=== PATIENT | female | born 1950 | race Hispanic/Latino ===

== ENCOUNTER 2017-03-14 13:02 | Emergency (ER) | payer MEDICARE ==
[~2017-03-14 13:02] MED LIST: ACET-2123 PO; ASPI-1181 PO; ATOR40TA71 PO; CALC-724 PO; MONT10TA21 PO; OMEP20CA10 PO; PRED20TA3 PO; TRAM50TA4 PO
[2017-03-14] MEDS ORDERED: IBUPROFEN 400 MG TABLET ONE (14:25)
== END 2017-03-14 15:41 | disposition home or self-care (01) ==
LOC: EDH 13:02
DX: S82.145A Nondisplaced bicondylar fracture of left tibia, initial encounter for closed fracture (principal); M25.552 Pain in left hip; M25.562 Pain in left knee; M79.652 Pain in left thigh; I10 Essential (primary) hypertension; E11.9 Type 2 diabetes mellitus without complications; J44.9 Chronic obstructive pulmonary disease, unspecified; W18.39XA Other fall on same level, initial encounter; Y93.89 Activity, other specified; Y92.89 Other specified places as the place of occurrence of the external cause; Y99.8 Other external cause status
CPT/HCPCS: 29505; 73502; 73552; 73562

== ENCOUNTER 2021-01-21 11:55 | Emergency (ER) | payer MEDICARE ==
[~2021-01-21] VITALS: Ht 157.5 cm; Wt 70.3 kg
[~2021-01-21 11:55] MED LIST changes: -ASPI-1181 PO; +ASPI-1443 PO; +CALC-1158 PO; -CALC-724 PO; -OMEP20CA10 PO; +OMEP20CA12 PO
[2021-01-21 12:25] LABS: BASOPHILS % (AUTO) 0.5 % (0.0-5.0); EOSINOPHILS % (AUTO) 0.9 % (0.0-8.0); HEMATOCRIT 37.5 % (36-48); LYMPHOCYTES % (AUTO) 24.6 % (21.0-51.0); MEAN CORPUSCULAR HEMOGLOBIN 29.7 pg (27.0-33.0); MEAN CORPUSCULAR HGB CONC 32.3 g/dL (32.0-36.0); MEAN CORPUSCULAR VOLUME 91.9 fL (79-99); MONOCYTES % (AUTO) 8.8 % (3.0-13.0); NEUTROPHILS % (AUTO) 64.9 % (40.0-77.0); PLATELET COUNT (AUTO) 295 K/uL (130-400); RED BLOOD CELL COUNT(AUTO) 4.08 MIL/uL (4.00-5.50); RED CELL DISTRIBUTION WIDTH 13.7 % (11.0-15.5); WHITE BLOOD COUNT (AUTO) 7.9 K/uL (4.8-10.8)
[2021-01-21] MEDS ORDERED: LORAZEPAM 2 MG/ML 1 ML VIAL IVP SCH (12:30)
[2021-01-21 12:38] LABS: CARBON DIOXIDE 26 mmol/L (21-32); CHLORIDE 102 mmol/L (101-111); GLOMERULAR FILTR. RATE CALC 58 mL/min (>60); GLUCOSE,RANDOM 135 mg/dL (70-105); POTASSIUM 4.1 mmol/L (3.5-5.1); SODIUM SERUM 138 mmol/L (136-145); UREA NITROGEN, BLOOD 19 mg/dL (7-18)
[2021-01-21 12:46] LABS: ALANINE AMINOTRANSFERASE 23 U/L (12-78); ALBUMIN 4.1 g/dL (3.5-5.0); ASPARTATE AMINOTRANSFERASE 22 U/L (10-37); BILIRUBIN,TOTAL 0.5 mg/dL (0.2-1.0)
[2021-01-21 12:50] LABS: APPEARANCE,URINE Clear (CLEAR); BILIRUBIN,URINE Negative (NEGATIVE); COLOR,URINE Yellow (YELLOW); GLUCOSE, URINE (UA) Negative (NEGATIVE); KETONES,URINE Negative (NEGATIVE); LEUKOCYTE ESTERASE ,URINE Negative (NEGATIVE); NITRATE,URINE Negative (NEGATIVE); OCCULT BLOOD,URINE Trace (NEGATIVE); PH,URINE 7.5 (5.0-8.0); PROTEIN,URINE Trace mg/dL (NEGATIVE)
[2021-01-21 12:59] LABS: BACTERIA,URINE Few /HPF (None Seen); RBC,URINE 0-1 /HPF (0-1); WBC,URINE 0-1 /HPF (0-1)
[2021-01-21 13:12] LABS: CRP QUANTITATIVE < 2.00 mg/L (0.00-9.0)
[2021-01-21] MEDS ORDERED: HYDR-3421 PO (13:23)
[2021-01-21 13:49] VITALS: BP 128/72
== END 2021-01-21 13:54 | disposition home or self-care (01) ==
LOC: EDH 11:55
DX: R00.2 Palpitations (principal); F41.9 Anxiety disorder, unspecified; I10 Essential (primary) hypertension; E11.9 Type 2 diabetes mellitus without complications; E78.00 Pure hypercholesterolemia, unspecified; J45.909 Unspecified asthma, uncomplicated; Z72.0 Tobacco use; Z79.52 Long term (current) use of systemic steroids; Z79.82 Long term (current) use of aspirin; Z79.84 Long term (current) use of oral hypoglycemic drugs; Z79.899 Other long term (current) drug therapy
CPT/HCPCS: 36415; 71045; 80053; 81001; 84484; 85025; 86140; 93005; 96374; 99285; J2060

== ENCOUNTER 2022-09-25 09:41 | Inpatient (IN) | payer OTHER, MEDICARE ==
[~2022-09-25] VITALS: Ht 157.5 cm; Wt 70.0 kg
[~2022-09-25 09:41] MED LIST changes: +AMLO5TAB4 PO; +BUDE10.22 IH; +HYDR-3421 PO; +HYDR25TA PO; +MONT-46 PO; +MONT-47 PO; -MONT10TA21 PO; +PRED20B PO; -PRED20TA3 PO
[2022-09-25 10:08] LABS: HEMATOCRIT 28.8 % (36-48); MEAN CORPUSCULAR HEMOGLOBIN 30.4 pg (27.0-33.0); MEAN CORPUSCULAR HGB CONC 35.1 g/dL (32.0-36.0); MEAN CORPUSCULAR VOLUME 86.7 fL (79-99); RED BLOOD CELL COUNT(AUTO) 3.32 MIL/uL (4.00-5.50); RED CELL DISTRIBUTION WIDTH 12.8 % (11.0-15.5); WHITE BLOOD COUNT (AUTO) 9.9 K/uL (4.8-10.8)
[2022-09-25] MEDS ORDERED: TRAM50TA4 PO (10:15)
[2022-09-25 10:21] LABS: ALBUMIN 3.8 g/dL (3.5-5.0); BILIRUBIN,TOTAL 0.8 mg/dL (0.2-1.0); TOTAL PROTEIN, SERUM 7.2 g/dL (6.0-8.3)
[2022-09-25 10:22] LABS: POTASSIUM 2.9 mmol/L (3.5-5.1)
[2022-09-25] MEDS ORDERED: POTASSIUM CHLORIDE 10% ELIXIR 20 MEQ/15 ML UDCUP PO ONE (11:00)
[2022-09-25] MEDS ORDERED: 0.9%NACL 1000ML 1,000 ML IV ONE (11:00)
[2022-09-25] MEDS ORDERED: CEFTRIAXONE 1G VIAL 2 GM in 0.9%NACL 100ML 100 ML IV SCH (12:00)
[2022-09-25] MEDS ORDERED: 0.9%NACL 1000ML 1,000 ML IV SCH ×2 (12:00→15:00)
[2022-09-25] MEDS ORDERED: ACETAMINOPHEN 325 MG TAB PO PRN ×2 (12:00)
[2022-09-25] MEDS ORDERED: ONDANSETRON 4MG INJ IV PRN (12:00)
[2022-09-25 13:32] LABS: CREATININE 3.2 mg/dL (0.5-1.5)
[2022-09-25] MEDS: CEFTRIAXONE 2GM VIAL IVPB SCH (13:59)
[2022-09-25] MEDS: AZITHROMYCIN 500MG+NS 250ML IVPB SCH (13:59)
[2022-09-25] MEDS ORDERED: POTASSIUM CHLORIDE 10% ELIXIR 20 MEQ/15 ML UDCUP PO PRN (14:00)
[2022-09-25] MEDS ORDERED: POTASSIUM CHLORIDE 10MEQ/100ML 100 ML IV PRN (14:00)
[2022-09-25 14:12] LABS: MAGNESIUM 1.8 mg/dL (1.80-2.40); URIC ACID 8.3 mg/dL (2.6-7.2)
[2022-09-25] MEDS: POTASSIUM CHLORIDE 10MEQ/100ML 100 ML IV PRN (14:26)
[2022-09-25 15:50] LABS: HEMOGLOBIN A1C 7.1 % (4.0-6.0)
[2022-09-25 15:51] LABS: BILIRUBIN,URINE NEGATIVE (NEGATIVE); COLOR,URINE YELLOW (YELLOW); GLUCOSE, URINE (UA) NEGATIVE (NEGATIVE); KETONES,URINE NEGATIVE (NEGATIVE); LEUKOCYTE ESTERASE ,URINE 25 Leu/uL (NEGATIVE); NITRATE,URINE NEGATIVE (NEGATIVE); OCCULT BLOOD,URINE NEGATIVE (NEGATIVE); PROTEIN,URINE 20 mg/dL (NEGATIVE); UROBILINOGEN,URINE 0.2 mg/dL (0.2-1.0)
[2022-09-25 15:52] LABS: CREATININE,URINE RANDOM 335 mg/dL (30-135)
[2022-09-25 15:53] LABS: ADD UA MICROSCOPIC YES; APPEARANCE,URINE CLOUDY (CLEAR)
[2022-09-25 15:55] LABS: BACTERIA,URINE MOD /HPF (None Seen); MUCUS,URINE RARE LPF (None Seen); NON-SQUAMOUS EPITHELIAL CELL 1 /HPF (0-2); SQUAMOUS EPITHELIAL CELL,UR MOD /HPF (0-2); UNCLASSIFIED CRYSTAL 6 /HPF (None Seen); WBC CLUMP FEW /HPF (0-1)
[2022-09-25 15:58] LABS: RETICULOCYTE % (AUTO) 1.78 % (0.42-2.23)
[2022-09-25 16:41] LABS: % IRON SATURATION 16.5 % (22-44)
[2022-09-25 16:53] LABS: POTASSIUM 3.9 mmol/L (3.5-5.1)
[2022-09-25] MEDS ORDERED: AMLO-257 PO (17:53)
[2022-09-25] MEDS ORDERED: FISH1CAP27 PO (17:53)
[2022-09-25] MEDS ORDERED: FENO134C21 PO (17:53)
[2022-09-25] MEDS ORDERED: LOVA10TA2 PO (17:53)
[2022-09-25] MEDS ORDERED: ALBU90AE2 IH (17:53)
[2022-09-25] MEDS ORDERED: LORA10TA7 PO (17:53)
[2022-09-25] MEDS ORDERED: LOSA25TA41 PO (17:53)
[2022-09-25] MEDS ORDERED: NOREPINEPHRIN 4MG/NS 250ML 250 ML IV ONE (18:23)
[2022-09-25 18:30] LABS: SARS-CoV-2, RNA, NAAT NEGATIVE SARS CoV-2 (NEGATIVE)
[2022-09-25 18:34] LABS: INFLUENZA TYPE A Negative For Type A (NEGATIVE); INFLUENZA TYPE B Negative For Type B (NEGATIVE)
[2022-09-25] MEDS: NOREPINEPHRIN 4MG/NS 250ML 250 ML IV SCH (18:34)
[2022-09-25] MEDS ORDERED: FUROSEMIDE 40MG VIAL IV STA (19:29)
[2022-09-25] MEDS ORDERED: FUROSEMIDE 20MG VIAL ONE (19:32)
[2022-09-26] VITALS (84 sets, daily range): BP systolic 82–133; BP diastolic 35–86; PULSE 88–127; RESP 11–31; O2SAT 97–100
[2022-09-26 01:55] LABS: ABG BASE EXCESS -8.1 mmol/L (-2.0-3.0); ABG HCO3 16.1 mmol/L (21.0-28.0); ABG OXYGEN SATURATION 97.3 % (95.0-99.0); ABG PCO2 30 mmHg (32-45); ABG PH 7.346 (7.35-7.450); PO2, ARTERIAL BG 98.8 mmHg (83.0-108.0); VENT MODE, BG NC 3LPM LR (ROOM AIR)
[2022-09-26] MEDS ORDERED: SODIUM BICARB 50MEQ 50ML VIAL 200 ML ONE (02:04)
[2022-09-26] MEDS ORDERED: SODIUM BICARB 50MEQ 50ML VIAL IV ONE (02:08)
[2022-09-26 03:28] LABS: ABG BASE EXCESS -2.5 mmol/L (-2.0-3.0); ABG HCO3 21.2 mmol/L (21.0-28.0); ABG OXYGEN SATURATION 97.5 % (95.0-99.0); ABG PCO2 34 mmHg (32-45); ABG PH 7.417 (7.35-7.450); PO2, ARTERIAL BG 95.6 mmHg (83.0-108.0); VENT MODE, BG NC 3LPM LR (ROOM AIR)
[2022-09-26 07:00] LABS: ALBUMIN 3.1 g/dL (3.5-5.0); BILIRUBIN,TOTAL 0.5 mg/dL (0.2-1.0); CREATININE 2.7 mg/dL (0.5-1.5); MAGNESIUM 1.8 mg/dL (1.80-2.40); TOTAL PROTEIN, SERUM 6.2 g/dL (6.0-8.3)
[2022-09-26] MEDS: NOREPINEPHRIN 4MG/NS 250ML 250 ML IV SCH ×2 (07:11→22:00)
[2022-09-26 07:21] LABS: BASOPHILS # (AUTO) 0.02 K/uL (0.00-0.20); BASOPHILS % (AUTO) 0.2 % (0.0-5.0); EOSINOPHILS # (AUTO) 0.14 K/uL (0.00-0.70); EOSINOPHILS % (AUTO) 1.6 % (0.0-8.0); HEMATOCRIT 26.4 % (36-48); IMMATURE GRANULOCYTE ABSOLUTE 0.06 K/uL (0-1); LYMPHOCYTES # (AUTO) 1.8 K/uL (1.0-4.8); LYMPHOCYTES % (AUTO) 21.1 % (21.0-51.0); MEAN CORPUSCULAR HEMOGLOBIN 30.6 pg (27.0-33.0); MEAN CORPUSCULAR HGB CONC 35.2 g/dL (32.0-36.0); MEAN CORPUSCULAR VOLUME 86.8 fL (79-99); MONOCYTES % (AUTO) 11.8 % (3.0-13.0); NEUTROPHILS # (AUTO) 5.6 K/uL (1.8-7.7); NEUTROPHILS % (AUTO) 64.6 % (40.0-77.0); PLATELET COUNT (AUTO) 293 K/uL (130-400); RED BLOOD CELL COUNT(AUTO) 3.04 MIL/uL (4.00-5.50); RED CELL DISTRIBUTION WIDTH 12.7 % (11.0-15.5); WHITE BLOOD COUNT (AUTO) 8.6 K/uL (4.8-10.8)
[2022-09-26] MEDS ORDERED: LOPERAMIDE HCL 2 MG CAP PO PRN (10:30)
[2022-09-26] MEDS ORDERED: DEXTROSE 50%-WATER 50 ML DISP.SYRIN IV PRN (12:00)
[2022-09-26] MEDS ORDERED: GLUCAGON 1MG KIT 1 MG ML IM PRN (12:00)
[2022-09-26] MEDS: AZITHROMYCIN 500MG+NS 250ML IVPB SCH (12:03)
[2022-09-26 13:52] LABS: INR 0.94 (0.85-1.15); PROTHROMBIN TIME 10.9 SEC (9.6-11.6)
[2022-09-26 13:53] LABS: PARTIAL THROMBOPLASTIN TIME 31.9 SEC (26.3-35.5)
[2022-09-26] MEDS: KCL 20 MEQ ERTAB PO PRN ×3 (15:26→21:25)
[2022-09-26] MEDS ORDERED: CILO100T3 PO (15:39)
[2022-09-26] MEDS: INSULIN HUMULIN R 100 UNIT/ML 3ML SQ SCH ×2 (16:30→21:00)
[2022-09-26] MEDS: CEFTRIAXONE 2GM VIAL IVPB SCH (18:05)
[2022-09-26] MEDS: METRONIDAZOLE 500MG/100ML BAG 100 ML IVPB SCH ×2 (18:06→21:27)
[2022-09-26] MEDS ORDERED: IRON SUCROSE COMPLEX 300 MG in 0.9% NACL 250ML 250 ML IV ONE (21:00)
[2022-09-26] MEDS ORDERED: ALBUTEROL SULFATE 90 MCG IH SCH (21:00)
[2022-09-26] MEDS: SYMBICORT 80-4.5 MCG INHALER IH SCH (21:00)
[2022-09-26] MEDS: FISH OIL 1000 MG/CAP PO SCH (21:13)
[2022-09-27] VITALS (56 sets, daily range): BP systolic 89–159; BP diastolic 43–104; PULSE 85–122; RESP 14–38; O2SAT 89–100
[2022-09-27] MEDS: CYCLOBENZAPRINE HCL 10 MG TABLET PO PRN (04:30)
[2022-09-27 04:34] LABS: BASOPHILS # (AUTO) 0.02 K/uL (0.00-0.20); BASOPHILS % (AUTO) 0.2 % (0.0-5.0); EOSINOPHILS # (AUTO) 0.11 K/uL (0.00-0.70); EOSINOPHILS % (AUTO) 1.1 % (0.0-8.0); HEMATOCRIT 28.2 % (36-48); IMMATURE GRANULOCYTE ABSOLUTE 0.07 K/uL (0-1); LYMPHOCYTES # (AUTO) 2.3 K/uL (1.0-4.8); LYMPHOCYTES % (AUTO) 22.9 % (21.0-51.0); MEAN CORPUSCULAR HEMOGLOBIN 30.2 pg (27.0-33.0); MEAN CORPUSCULAR VOLUME 88.7 fL (79-99); MONOCYTES # (AUTO) 1.2 K/uL (0.1-1.0); MONOCYTES % (AUTO) 12.2 % (3.0-13.0); NEUTROPHILS # (AUTO) 6.3 K/uL (1.8-7.7); NEUTROPHILS % (AUTO) 62.9 % (40.0-77.0); PLATELET COUNT (AUTO) 302 K/uL (130-400); RED BLOOD CELL COUNT(AUTO) 3.18 MIL/uL (4.00-5.50); RED CELL DISTRIBUTION WIDTH 12.9 % (11.0-15.5)
[2022-09-27 04:48] LABS: ALBUMIN 2.9 g/dL (3.5-5.0); BILIRUBIN,TOTAL 0.2 mg/dL (0.2-1.0); CREATININE 1.5 mg/dL (0.5-1.5); MAGNESIUM 1.8 mg/dL (1.80-2.40); PHOSPHORUS 2.7 mg/dL (2.5-4.9); POTASSIUM 3.8 mmol/L (3.5-5.1); TOTAL PROTEIN, SERUM 6.2 g/dL (6.0-8.3)
[2022-09-27] MEDS: MAGNESIUM 2GM PREMIX 50ML 50 ML IV PRN (06:19)
[2022-09-27] MEDS: KCL 20 MEQ ERTAB PO PRN (06:20)
[2022-09-27] MEDS: METRONIDAZOLE 500MG/100ML BAG 100 ML IVPB SCH ×3 (06:20→21:29)
[2022-09-27] MEDS: INSULIN HUMULIN R 100 UNIT/ML 3ML SQ SCH ×4 (06:21→21:00)
[2022-09-27] MEDS ORDERED: NON-FORMULARY MEDICATION 1 EACH (Omeprazole 20 MG) PO SCH (07:30)
[2022-09-27] MEDS ORDERED: PANTOPRAZOLE 40 MG TAB DR PO SCH (07:30)
[2022-09-27] MEDS: FISH OIL 1000 MG/CAP PO SCH ×2 (08:51→21:28)
[2022-09-27] MEDS: LORATADINE 10 MG TABLET PO SCH (08:51)
[2022-09-27] MEDS: LACTOBACILLUS RHAMNOSUS GG 1 EACH CAP.SPRINK PO SCH ×3 (08:51→21:28)
[2022-09-27] MEDS: SYMBICORT 80-4.5 MCG INHALER IH SCH ×2 (09:00→20:03)
[2022-09-27] MEDS ORDERED: FENOFIBRATE MICRONIZED 134 MG PO SCH (09:00)
[2022-09-27] MEDS ORDERED: FENOFIBRATE NANOCRYSTALLIZED 48 MG TAB PO SCH (09:00)
[2022-09-27] MEDS: BUDESONIDE 0.5 MG/2 ML INH IH SCH ×3 (12:03→19:42)
[2022-09-27] MEDS: ALBUTEROL 0.083% 2.5 MG/3 ML INH IH SCH ×2 (12:04→19:24)
[2022-09-27] MEDS: CEFTRIAXONE 2GM VIAL IVPB SCH (12:56)
[2022-09-27] MEDS: AZITHROMYCIN 500MG+NS 250ML IVPB SCH (12:56)
[2022-09-27] MEDS: IPRATROPIUM/ALBUTEROL SULFATE 3 ML SOLUTION IH PRN ×2 (15:28→23:14)
[2022-09-27] MEDS ORDERED: NON-FORMULARY MEDICATION 1 EACH (Lovastatin 10 MG) PO SCH (21:00)
[2022-09-27] MEDS: FAMOTIDINE 20MG TAB PO SCH (21:27)
[2022-09-27] MEDS: ATORVASTATIN 10 MG TABLET PO SCH (21:28)
[2022-09-27] MEDS: CILOSTAZOL 100 MG TAB PO SCH (21:28)
[2022-09-28] VITALS (13 sets, daily range): BP systolic 118–128; BP diastolic 54–87; PULSE 95–125; RESP 20–25; O2SAT 87–97
[2022-09-28 06:02] LABS: BASOPHILS # (AUTO) 0.04 K/uL (0.00-0.20); BASOPHILS % (AUTO) 0.4 % (0.0-5.0); EOSINOPHILS # (AUTO) 0.02 K/uL (0.00-0.70); EOSINOPHILS % (AUTO) 0.2 % (0.0-8.0); HEMATOCRIT 29.2 % (36-48); IMMATURE GRANULOCYTE ABSOLUTE 0.13 K/uL (0-1); LYMPHOCYTES # (AUTO) 1.9 K/uL (1.0-4.8); LYMPHOCYTES % (AUTO) 18.1 % (21.0-51.0); MEAN CORPUSCULAR HEMOGLOBIN 30.4 pg (27.0-33.0); MEAN CORPUSCULAR HGB CONC 32.9 g/dL (32.0-36.0); MEAN CORPUSCULAR VOLUME 92.4 fL (79-99); MONOCYTES # (AUTO) 1.2 K/uL (0.1-1.0); MONOCYTES % (AUTO) 11.3 % (3.0-13.0); NEUTROPHILS # (AUTO) 7.2 K/uL (1.8-7.7); NEUTROPHILS % (AUTO) 68.7 % (40.0-77.0); PLATELET COUNT (AUTO) 267 K/uL (130-400); RED BLOOD CELL COUNT(AUTO) 3.16 MIL/uL (4.00-5.50); RED CELL DISTRIBUTION WIDTH 13.2 % (11.0-15.5); WHITE BLOOD COUNT (AUTO) 10.4 K/uL (4.8-10.8)
[2022-09-28] MEDS: BUDESONIDE 0.5 MG/2 ML INH IH SCH ×2 (06:36→18:21)
[2022-09-28] MEDS: ALBUTEROL 0.083% 2.5 MG/3 ML INH IH SCH ×2 (06:36→18:21)
[2022-09-28] MEDS: INSULIN HUMULIN R 100 UNIT/ML 3ML SQ SCH ×4 (06:38→21:00)
[2022-09-28 06:39] LABS: ALBUMIN 2.9 g/dL (3.5-5.0); BILIRUBIN,TOTAL 0.4 mg/dL (0.2-1.0); CREATININE 0.8 mg/dL (0.5-1.5); POTASSIUM 3.9 mmol/L (3.5-5.1); TOTAL PROTEIN, SERUM 6.6 g/dL (6.0-8.3)
[2022-09-28] MEDS: METRONIDAZOLE 500MG/100ML BAG 100 ML IVPB SCH ×3 (06:40→21:38)
[2022-09-28] MEDS: FISH OIL 1000 MG/CAP PO SCH ×2 (08:51→19:37)
[2022-09-28] MEDS: LACTOBACILLUS RHAMNOSUS GG 1 EACH CAP.SPRINK PO SCH ×3 (08:51→19:40)
[2022-09-28] MEDS: LORATADINE 10 MG TABLET PO SCH (08:51)
[2022-09-28] MEDS: FAMOTIDINE 20MG TAB PO SCH ×2 (08:51→19:37)
[2022-09-28] MEDS: CILOSTAZOL 100 MG TAB PO SCH ×2 (08:51→19:37)
[2022-09-28] MEDS: SYMBICORT 80-4.5 MCG INHALER IH SCH ×2 (08:52→19:38)
[2022-09-28] MEDS: IPRATROPIUM/ALBUTEROL SULFATE 3 ML SOLUTION IH PRN ×2 (11:26→22:53)
[2022-09-28] MEDS: AZITHROMYCIN 500MG+NS 250ML IVPB SCH (12:25)
[2022-09-28] MEDS: CEFTRIAXONE 2GM VIAL IVPB SCH (12:25)
[2022-09-28] MEDS: ATORVASTATIN 10 MG TABLET PO SCH (19:37)
[2022-09-29] VITALS (16 sets, daily range): BP systolic 115–158; BP diastolic 54–81; PULSE 110–130; RESP 19–23; O2SAT 96–98
[2022-09-29 03:36] LABS: BASOPHILS # (AUTO) 0.03 K/uL (0.00-0.20); BASOPHILS % (AUTO) 0.3 % (0.0-5.0); EOSINOPHILS # (AUTO) 0.03 K/uL (0.00-0.70); EOSINOPHILS % (AUTO) 0.3 % (0.0-8.0); HEMATOCRIT 26.7 % (36-48); IMMATURE GRANULOCYTE ABSOLUTE 0.12 K/uL (0-1); LYMPHOCYTES # (AUTO) 2.1 K/uL (1.0-4.8); MEAN CORPUSCULAR HEMOGLOBIN 30.3 pg (27.0-33.0); MEAN CORPUSCULAR VOLUME 92.1 fL (79-99); MONOCYTES # (AUTO) 1.5 K/uL (0.1-1.0); MONOCYTES % (AUTO) 12.7 % (3.0-13.0); NEUTROPHILS # (AUTO) 7.8 K/uL (1.8-7.7); NEUTROPHILS % (AUTO) 67.7 % (40.0-77.0); PLATELET COUNT (AUTO) 272 K/uL (130-400); RED CELL DISTRIBUTION WIDTH 13.4 % (11.0-15.5); WHITE BLOOD COUNT (AUTO) 11.5 K/uL (4.8-10.8)
[2022-09-29 03:43] LABS: ALBUMIN 2.6 g/dL (3.5-5.0); BILIRUBIN,TOTAL 0.4 mg/dL (0.2-1.0); CREATININE 0.8 mg/dL (0.5-1.5); POTASSIUM 3.7 mmol/L (3.5-5.1); TOTAL PROTEIN, SERUM 5.9 g/dL (6.0-8.3)
[2022-09-29] MEDS: METRONIDAZOLE 500MG/100ML BAG 100 ML IVPB SCH ×3 (05:33→22:07)
[2022-09-29] MEDS: INSULIN HUMULIN R 100 UNIT/ML 3ML SQ SCH ×4 (06:04→21:00)
[2022-09-29] MEDS: ALBUTEROL 0.083% 2.5 MG/3 ML INH IH SCH ×2 (06:37→18:18)
[2022-09-29] MEDS: BUDESONIDE 0.5 MG/2 ML INH IH SCH ×2 (06:37→18:18)
[2022-09-29] MEDS: CILOSTAZOL 100 MG TAB PO SCH ×2 (08:24→21:40)
[2022-09-29] MEDS: FISH OIL 1000 MG/CAP PO SCH ×2 (08:25→21:40)
[2022-09-29] MEDS: FAMOTIDINE 20MG TAB PO SCH ×2 (08:25→21:40)
[2022-09-29] MEDS: LACTOBACILLUS RHAMNOSUS GG 1 EACH CAP.SPRINK PO SCH ×3 (08:25→21:40)
[2022-09-29] MEDS: KCL 20 MEQ ERTAB PO PRN (08:25)
[2022-09-29] MEDS: LORATADINE 10 MG TABLET PO SCH (08:25)
[2022-09-29] MEDS ORDERED: BISACODYL 10 MG SUPP.RECT RC SCH (09:30)
[2022-09-29] MEDS: MORPHINE 2 MG SYG IVP PRN ×2 (10:31→17:00)
[2022-09-29] MEDS: IPRATROPIUM 0.5 MG/2.5 ML INH IH SCH ×4 (10:54→22:52)
[2022-09-29] MEDS ORDERED: IOHEXOL 350 MG/ML 100ML INFUS..BTL IV ONE (11:08)
[2022-09-29] MEDS: AZITHROMYCIN 500MG+NS 250ML IVPB SCH (12:59)
[2022-09-29] MEDS: CEFTRIAXONE 2GM VIAL IVPB SCH (12:59)
[2022-09-29] MEDS: ATORVASTATIN 10 MG TABLET PO SCH (21:40)
[2022-09-29] MEDS: BISACODYL 5 MG TABLET.DR PO SCH (21:40)
[2022-09-30] VITALS (16 sets, daily range): BP systolic 115–138; BP diastolic 37–72; PULSE 98–157; RESP 18–24; O2SAT 93–98
[2022-09-30] MEDS: IPRATROPIUM 0.5 MG/2.5 ML INH IH SCH ×6 (02:15→22:24)
[2022-09-30 03:35] LABS: HEMATOCRIT 28.4 % (36-48); MEAN CORPUSCULAR HEMOGLOBIN 30.4 pg (27.0-33.0); MEAN CORPUSCULAR HGB CONC 32.7 g/dL (32.0-36.0); MEAN CORPUSCULAR VOLUME 92.8 fL (79-99); PLATELET COUNT (AUTO) 300 K/uL (130-400); RED BLOOD CELL COUNT(AUTO) 3.06 MIL/uL (4.00-5.50); RED CELL DISTRIBUTION WIDTH 13.7 % (11.0-15.5); WHITE BLOOD COUNT (AUTO) 12.8 K/uL (4.8-10.8)
[2022-09-30 04:03] LABS: ALBUMIN 2.9 g/dL (3.5-5.0); BILIRUBIN,TOTAL 0.4 mg/dL (0.2-1.0); POTASSIUM 4.1 mmol/L (3.5-5.1); TOTAL PROTEIN, SERUM 6.6 g/dL (6.0-8.3)
[2022-09-30] MEDS: INSULIN HUMULIN R 100 UNIT/ML 3ML SQ SCH ×4 (06:08→20:14)
[2022-09-30] MEDS: METRONIDAZOLE 500MG/100ML BAG 100 ML IVPB SCH ×3 (06:08→21:58)
[2022-09-30 06:09] LABS: LYMPHOCYTES % (MANUAL) 18 % (22-44); MAN.DIFF COMMENT-IMPRESSION MANUAL DIFFERENTIAL; MONOCYTES % (MANUAL) 7 % (2-9); PLATELET MORPHOLOGY COMMENT ADEQUATE; SEGMENTED NEUTROPHILS % 75 % (40-70); TOTAL CELLS COUNTED 100; WBC MORPHOLOGY NORMAL
[2022-09-30] MEDS: BUDESONIDE 0.5 MG/2 ML INH IH SCH ×2 (06:30→18:00)
[2022-09-30] MEDS: LORATADINE 10 MG TABLET PO SCH (08:43)
[2022-09-30] MEDS: CILOSTAZOL 100 MG TAB PO SCH ×2 (08:43→20:40)
[2022-09-30] MEDS: LACTOBACILLUS RHAMNOSUS GG 1 EACH CAP.SPRINK PO SCH ×3 (08:43→20:39)
[2022-09-30] MEDS: FISH OIL 1000 MG/CAP PO SCH ×2 (08:43→20:39)
[2022-09-30] MEDS: FAMOTIDINE 20MG TAB PO SCH ×2 (08:43→20:39)
[2022-09-30] MEDS: BISACODYL 5 MG TABLET.DR PO SCH (08:44)
[2022-09-30] MEDS: ALBUTEROL 0.083% 2.5 MG/3 ML INH IH SCH ×2 (09:00→18:05)
[2022-09-30 10:28] LABS: B-TYPE NATRIURETIC PEPTIDE 165 pg/mL (0-100)
[2022-09-30 10:52] LABS: ABG BASE EXCESS -4.8 mmol/L (-2.0-3.0); ABG HCO3 18.1 mmol/L (21.0-28.0); ABG OXYGEN SATURATION 95.6 % (95.0-99.0); ABG PCO2 28 mmHg (32-45); ABG PH 7.422 (7.35-7.450); PO2, ARTERIAL BG 75.3 mmHg (83.0-108.0)
[2022-09-30] MEDS: FUROSEMIDE 20MG VIAL IV SCH ×2 (10:53→21:57)
[2022-09-30] MEDS: AZITHROMYCIN 500MG+NS 250ML IVPB SCH (10:56)
[2022-09-30 11:50] LABS: ERYTHROCYTE SEDIMENTATION RATE 10 MM/HR (0-30)
[2022-09-30] MEDS: CEFTRIAXONE 2GM VIAL IVPB SCH (13:42)
[2022-09-30] MEDS: DICYCLOMINE HCL 20 MG TAB PO PRN (20:39)
[2022-09-30] MEDS: ATORVASTATIN 10 MG TABLET PO SCH (20:40)
[2022-10-01] VITALS (16 sets, daily range): BP systolic 106–125; BP diastolic 43–76; PULSE 113–140; RESP 21–28; O2SAT 94–100
[2022-10-01] MEDS: IPRATROPIUM 0.5 MG/2.5 ML INH IH SCH ×2 (01:44→03:45)
[2022-10-01] MEDS ORDERED: IPRATROPIUM/ALBUTEROL SULFATE 3 ML SOLUTION IH PRN (04:30)
[2022-10-01 05:31] LABS: BASOPHILS # (AUTO) 0.03 K/uL (0.00-0.20); BASOPHILS % (AUTO) 0.3 % (0.0-5.0); EOSINOPHILS # (AUTO) 0.06 K/uL (0.00-0.70); EOSINOPHILS % (AUTO) 0.5 % (0.0-8.0); HEMATOCRIT 27.9 % (36-48); LYMPHOCYTES # (AUTO) 1.3 K/uL (1.0-4.8); MEAN CORPUSCULAR HEMOGLOBIN 30.2 pg (27.0-33.0); MEAN CORPUSCULAR HGB CONC 32.6 g/dL (32.0-36.0); MEAN CORPUSCULAR VOLUME 92.7 fL (79-99); MONOCYTES # (AUTO) 1.2 K/uL (0.1-1.0); MONOCYTES % (AUTO) 10.9 % (3.0-13.0); NEUTROPHILS # (AUTO) 8.4 K/uL (1.8-7.7); NEUTROPHILS % (AUTO) 75.4 % (40.0-77.0); PLATELET COUNT (AUTO) 300 K/uL (130-400); RED BLOOD CELL COUNT(AUTO) 3.01 MIL/uL (4.00-5.50); RED CELL DISTRIBUTION WIDTH 13.6 % (11.0-15.5); WHITE BLOOD COUNT (AUTO) 11.2 K/uL (4.8-10.8)
[2022-10-01] MEDS: INSULIN HUMULIN R 100 UNIT/ML 3ML SQ SCH ×4 (05:55→21:00)
[2022-10-01 06:03] LABS: ALBUMIN 2.9 g/dL (3.5-5.0); BILIRUBIN,TOTAL 0.5 mg/dL (0.2-1.0); CREATININE 0.9 mg/dL (0.5-1.5); POTASSIUM 3.6 mmol/L (3.5-5.1); TOTAL PROTEIN, SERUM 6.8 g/dL (6.0-8.3)
[2022-10-01] MEDS: BUDESONIDE 0.5 MG/2 ML INH IH SCH (06:29)
[2022-10-01] MEDS: IPRATROPIUM/ALBUTEROL SULFATE 3 ML SOLUTION IH SCH ×4 (06:30→23:37)
[2022-10-01] MEDS: METRONIDAZOLE 500MG/100ML BAG 100 ML IVPB SCH ×3 (07:21→22:08)
[2022-10-01] MEDS: KCL 20 MEQ ERTAB PO PRN ×2 (07:25→10:02)
[2022-10-01] MEDS ORDERED: ALPRAZOLAM 0.25 MG TABLET PO ONE (09:30)
[2022-10-01] MEDS: FAMOTIDINE 20MG TAB PO SCH ×2 (10:00→20:36)
[2022-10-01] MEDS: FUROSEMIDE 20MG VIAL IV SCH ×2 (10:00→20:36)
[2022-10-01] MEDS: LACTOBACILLUS RHAMNOSUS GG 1 EACH CAP.SPRINK PO SCH ×3 (10:00→20:36)
[2022-10-01] MEDS: FISH OIL 1000 MG/CAP PO SCH ×2 (10:00→20:36)
[2022-10-01] MEDS: LORATADINE 10 MG TABLET PO SCH (10:00)
[2022-10-01] MEDS: CILOSTAZOL 100 MG TAB PO SCH ×2 (10:00→20:36)
[2022-10-01] MEDS ORDERED: METOPROLOL TARTRATE 25 MG TAB PO SCH (12:30)
[2022-10-01] MEDS ORDERED: MIDODRINE HCL 5 MG TABLET PO PRN (12:30)
[2022-10-01] MEDS ORDERED: METOPROLOL TARTRATE 1 MG/ML 5ML VIAL IV PRN (12:30)
[2022-10-01] MEDS: CEFTRIAXONE 2GM VIAL IVPB SCH (14:05)
[2022-10-01] MEDS: METOPROLOL TARTRATE 25 MG TAB PO SCH (14:15)
[2022-10-01 17:12] LABS: ABG BASE EXCESS -3.7 mmol/L (-2.0-3.0); ABG HCO3 20.5 mmol/L (21.0-28.0); ABG PCO2 35 mmHg (32-45); ABG PH 7.386 (7.35-7.450); PO2, ARTERIAL BG 54.1 mmHg (83.0-108.0); VENT MODE, BG NC (ROOM AIR)
[2022-10-01] MEDS: ATORVASTATIN 10 MG TABLET PO SCH (20:36)
[2022-10-02] VITALS (15 sets, daily range): BP systolic 112–143; BP diastolic 45–63; PULSE 109–141; RESP 20–28; O2SAT 98–100
[2022-10-02 03:48] LABS: HEMATOCRIT 25.4 % (36-48); MEAN CORPUSCULAR HEMOGLOBIN 30.4 pg (27.0-33.0); MEAN CORPUSCULAR HGB CONC 32.7 g/dL (32.0-36.0); PLATELET COUNT (AUTO) 272 K/uL (130-400); RED BLOOD CELL COUNT(AUTO) 2.73 MIL/uL (4.00-5.50); RED CELL DISTRIBUTION WIDTH 13.6 % (11.0-15.5); WHITE BLOOD COUNT (AUTO) 10.7 K/uL (4.8-10.8)
[2022-10-02 03:59] LABS: ALBUMIN 2.7 g/dL (3.5-5.0); BILIRUBIN,TOTAL 0.3 mg/dL (0.2-1.0); CREATININE 0.9 mg/dL (0.5-1.5); MAGNESIUM 1.5 mg/dL (1.80-2.40); PHOSPHORUS 2.4 mg/dL (2.5-4.9); POTASSIUM 3.5 mmol/L (3.5-5.1); TOTAL PROTEIN, SERUM 6.2 g/dL (6.0-8.3)
[2022-10-02] MEDS: MAGNESIUM 2GM PREMIX 50ML 50 ML IV PRN (04:31)
[2022-10-02] MEDS: KCL 20 MEQ ERTAB PO PRN ×2 (04:51→05:51)
[2022-10-02 05:10] LABS: EOSINOPHILS % (MANUAL) 1 % (1-6); LYMPHOCYTES % (MANUAL) 13 % (22-44); MAN.DIFF COMMENT-IMPRESSION MANUAL DIFFERENTIAL; MONOCYTES % (MANUAL) 5 % (2-9); SEGMENTED NEUTROPHILS % 81 % (40-70); TOTAL CELLS COUNTED 100
[2022-10-02] MEDS: METRONIDAZOLE 500MG/100ML BAG 100 ML IVPB SCH ×3 (05:52→23:01)
[2022-10-02] MEDS: INSULIN HUMULIN R 100 UNIT/ML 3ML SQ SCH ×4 (05:58→20:10)
[2022-10-02] MEDS: IPRATROPIUM/ALBUTEROL SULFATE 3 ML SOLUTION IH SCH (06:32)
[2022-10-02 08:20] LABS: ABG BASE EXCESS -1.9 mmol/L (-2.0-3.0); ABG HCO3 23.3 mmol/L (21.0-28.0); ABG PCO2 41 mmHg (32-45); ABG PH 7.371 (7.35-7.450); PO2, ARTERIAL BG 163.7 mmHg (83.0-108.0); VENT MODE, BG 10L OXI (ROOM AIR)
[2022-10-02] MEDS: FISH OIL 1000 MG/CAP PO SCH ×2 (08:35→20:09)
[2022-10-02] MEDS: FAMOTIDINE 20MG TAB PO SCH ×2 (08:35→20:10)
[2022-10-02] MEDS: CILOSTAZOL 100 MG TAB PO SCH ×2 (08:35→20:10)
[2022-10-02] MEDS: LACTOBACILLUS RHAMNOSUS GG 1 EACH CAP.SPRINK PO SCH ×3 (08:35→20:09)
[2022-10-02] MEDS: FUROSEMIDE 20MG VIAL IV SCH (08:35)
[2022-10-02] MEDS: LORATADINE 10 MG TABLET PO SCH (08:35)
[2022-10-02] MEDS: DICYCLOMINE HCL 20 MG TAB PO PRN (09:52)
[2022-10-02] MEDS: MORPHINE 2 MG SYG IVP PRN (10:19)
[2022-10-02] MEDS: IPRATROPIUM 0.5 MG/2.5 ML INH IH SCH ×3 (11:12→23:23)
[2022-10-02] MEDS: METOPROLOL TARTRATE 25 MG TAB PO SCH ×2 (11:28→20:10)
[2022-10-02] MEDS: METOPROLOL TARTRATE 1 MG/ML 5ML VIAL IV PRN (12:45)
[2022-10-02] MEDS: CEFTRIAXONE 2GM VIAL IVPB SCH (12:46)
[2022-10-02] MEDS: FUROSEMIDE 40MG VIAL IV SCH (17:26)
[2022-10-02] MEDS: ATORVASTATIN 10 MG TABLET PO SCH (20:09)
[2022-10-03] VITALS (15 sets, daily range): BP systolic 101–122; BP diastolic 42–86; PULSE 94–120; RESP 16–22; O2SAT 96–99
[2022-10-03] MEDS: FUROSEMIDE 40MG VIAL IV SCH ×3 (03:10→22:17)
[2022-10-03] MEDS: METOPROLOL TARTRATE 1 MG/ML 5ML VIAL IV PRN (03:11)
[2022-10-03] MEDS: METRONIDAZOLE 500MG/100ML BAG 100 ML IVPB SCH ×3 (05:41→22:48)
[2022-10-03] MEDS: DICYCLOMINE HCL 20 MG TAB PO PRN (05:58)
[2022-10-03 06:10] LABS: BASOPHILS # (AUTO) 0.03 K/uL (0.00-0.20); BASOPHILS % (AUTO) 0.3 % (0.0-5.0); EOSINOPHILS # (AUTO) 0.09 K/uL (0.00-0.70); EOSINOPHILS % (AUTO) 0.9 % (0.0-8.0); IMMATURE GRANULOCYTE ABSOLUTE 0.09 K/uL (0-1); LYMPHOCYTES # (AUTO) 1.7 K/uL (1.0-4.8); LYMPHOCYTES % (AUTO) 16.9 % (21.0-51.0); MEAN CORPUSCULAR HEMOGLOBIN 29.8 pg (27.0-33.0); MEAN CORPUSCULAR HGB CONC 32.5 g/dL (32.0-36.0); MEAN CORPUSCULAR VOLUME 91.8 fL (79-99); MONOCYTES % (AUTO) 9.7 % (3.0-13.0); NEUTROPHILS # (AUTO) 7.2 K/uL (1.8-7.7); NEUTROPHILS % (AUTO) 71.3 % (40.0-77.0); PLATELET COUNT (AUTO) 303 K/uL (130-400); RED BLOOD CELL COUNT(AUTO) 3.05 MIL/uL (4.00-5.50); RED CELL DISTRIBUTION WIDTH 13.3 % (11.0-15.5); WHITE BLOOD COUNT (AUTO) 10.1 K/uL (4.8-10.8)
[2022-10-03] MEDS: INSULIN HUMULIN R 100 UNIT/ML 3ML SQ SCH ×4 (06:21→21:00)
[2022-10-03 06:48] LABS: B-TYPE NATRIURETIC PEPTIDE 292 pg/mL (0-100)
[2022-10-03] MEDS: IPRATROPIUM 0.5 MG/2.5 ML INH IH SCH ×4 (06:50→23:51)
[2022-10-03 06:55] LABS: ALBUMIN 2.8 g/dL (3.5-5.0); BILIRUBIN,TOTAL 0.4 mg/dL (0.2-1.0); CREATININE 0.8 mg/dL (0.5-1.5); TOTAL PROTEIN, SERUM 6.5 g/dL (6.0-8.3)
[2022-10-03] MEDS ORDERED: FUROSEMIDE 20 MG TABLET PO SCH (09:00)
[2022-10-03] MEDS: LACTOBACILLUS RHAMNOSUS GG 1 EACH CAP.SPRINK PO SCH ×3 (10:04→22:17)
[2022-10-03] MEDS: METOPROLOL TARTRATE 25 MG TAB PO SCH ×4 (10:04→22:17)
[2022-10-03] MEDS: CILOSTAZOL 100 MG TAB PO SCH ×2 (10:04→22:16)
[2022-10-03] MEDS: LORATADINE 10 MG TABLET PO SCH (10:04)
[2022-10-03] MEDS: FAMOTIDINE 20MG TAB PO SCH ×2 (10:04→22:17)
[2022-10-03] MEDS: FISH OIL 1000 MG/CAP PO SCH ×2 (10:04→22:17)
[2022-10-03] MEDS: CEFTRIAXONE 2GM VIAL IVPB SCH (13:04)
[2022-10-03] MEDS: POTASSIUM CHLORIDE 10MEQ/100ML 100 ML IV PRN (19:28)
[2022-10-03] MEDS: ATORVASTATIN 10 MG TABLET PO SCH (22:17)
[2022-10-03] MEDS: MAGNESIUM 2GM PREMIX 50ML 50 ML IV PRN (22:18)
[2022-10-04] VITALS (12 sets, daily range): BP systolic 99–125; BP diastolic 52–69; PULSE 71–132; RESP 18–22; O2SAT 94–99
[2022-10-04 05:28] LABS: HEMATOCRIT 29.3 % (36-48); MEAN CORPUSCULAR HGB CONC 32.1 g/dL (32.0-36.0); MEAN CORPUSCULAR VOLUME 93.6 fL (79-99); RED BLOOD CELL COUNT(AUTO) 3.13 MIL/uL (4.00-5.50); RED CELL DISTRIBUTION WIDTH 13.1 % (11.0-15.5); WHITE BLOOD COUNT (AUTO) 9.6 K/uL (4.8-10.8)
[2022-10-04 05:44] LABS: CREATININE 0.8 mg/dL (0.5-1.5); MAGNESIUM 1.7 mg/dL (1.80-2.40)
[2022-10-04 05:54] LABS: POTASSIUM 2.7 mmol/L (3.5-5.1)
[2022-10-04] MEDS: POTASSIUM CHLORIDE 10MEQ/100ML 100 ML IV PRN ×2 (05:57→09:06)
[2022-10-04] MEDS: METRONIDAZOLE 500MG/100ML BAG 100 ML IVPB SCH ×3 (05:58→21:04)
[2022-10-04] MEDS: INSULIN HUMULIN R 100 UNIT/ML 3ML SQ SCH ×4 (06:42→21:00)
[2022-10-04] MEDS: CYCLOBENZAPRINE HCL 10 MG TABLET PO PRN (06:42)
[2022-10-04] MEDS: IPRATROPIUM 0.5 MG/2.5 ML INH IH SCH ×4 (06:50→23:05)
[2022-10-04] MEDS: FISH OIL 1000 MG/CAP PO SCH ×2 (08:54→21:02)
[2022-10-04] MEDS: METOPROLOL TARTRATE 25 MG TAB PO SCH ×4 (08:55→21:02)
[2022-10-04] MEDS: CILOSTAZOL 100 MG TAB PO SCH ×2 (08:55→21:02)
[2022-10-04] MEDS: LACTOBACILLUS RHAMNOSUS GG 1 EACH CAP.SPRINK PO SCH ×3 (08:55→21:02)
[2022-10-04] MEDS: FAMOTIDINE 20MG TAB PO SCH ×2 (08:56→21:02)
[2022-10-04] MEDS: FUROSEMIDE 40MG VIAL IV SCH ×3 (09:02→21:02)
[2022-10-04] MEDS: MAGNESIUM 2GM PREMIX 50ML 50 ML IV PRN (09:03)
[2022-10-04] MEDS: LORATADINE 10 MG TABLET PO SCH (09:05)
[2022-10-04] MEDS: CEFTRIAXONE 2GM VIAL IVPB SCH (14:06)
[2022-10-04] MEDS: ATORVASTATIN 10 MG TABLET PO SCH (21:02)
[2022-10-05] VITALS (14 sets, daily range): BP systolic 102–144; BP diastolic 48–80; PULSE 89–120; RESP 18–20; O2SAT 95–99
[2022-10-05] MEDS: CYCLOBENZAPRINE HCL 10 MG TABLET PO PRN (02:05)
[2022-10-05] MEDS: DICYCLOMINE HCL 20 MG TAB PO PRN (04:54)
[2022-10-05] MEDS: METRONIDAZOLE 500MG/100ML BAG 100 ML IVPB SCH ×3 (05:05→20:16)
[2022-10-05] MEDS: METOPROLOL TARTRATE 1 MG/ML 5ML VIAL IV PRN (05:05)
[2022-10-05 05:21] LABS: BASOPHILS # (AUTO) 0.03 K/uL (0.00-0.20); BASOPHILS % (AUTO) 0.3 % (0.0-5.0); EOSINOPHILS # (AUTO) 0.04 K/uL (0.00-0.70); EOSINOPHILS % (AUTO) 0.4 % (0.0-8.0); LYMPHOCYTES # (AUTO) 1.6 K/uL (1.0-4.8); LYMPHOCYTES % (AUTO) 15.4 % (21.0-51.0); MEAN CORPUSCULAR HEMOGLOBIN 29.4 pg (27.0-33.0); MEAN CORPUSCULAR HGB CONC 32.6 g/dL (32.0-36.0); MEAN CORPUSCULAR VOLUME 90.4 fL (79-99); MONOCYTES # (AUTO) 1.1 K/uL (0.1-1.0); MONOCYTES % (AUTO) 10.7 % (3.0-13.0); NEUTROPHILS # (AUTO) 7.6 K/uL (1.8-7.7); NEUTROPHILS % (AUTO) 72.2 % (40.0-77.0); PLATELET COUNT (AUTO) 341 K/uL (130-400); RED BLOOD CELL COUNT(AUTO) 3.43 MIL/uL (4.00-5.50); RED CELL DISTRIBUTION WIDTH 13.1 % (11.0-15.5); WHITE BLOOD COUNT (AUTO) 10.5 K/uL (4.8-10.8)
[2022-10-05 05:56] LABS: ALBUMIN 2.6 g/dL (3.5-5.0); BILIRUBIN,TOTAL 0.4 mg/dL (0.2-1.0); CREATININE 0.8 mg/dL (0.5-1.5); MAGNESIUM 1.7 mg/dL (1.80-2.40); TOTAL PROTEIN, SERUM 6.7 g/dL (6.0-8.3)
[2022-10-05 05:59] LABS: POTASSIUM 2.7 mmol/L (3.5-5.1)
[2022-10-05] MEDS: MAGNESIUM 2GM PREMIX 50ML 50 ML IV PRN (06:38)
[2022-10-05] MEDS: KCL 20 MEQ ERTAB PO PRN ×3 (06:39→22:21)
[2022-10-05] MEDS: INSULIN HUMULIN R 100 UNIT/ML 3ML SQ SCH ×4 (06:40→20:17)
[2022-10-05] MEDS: IPRATROPIUM 0.5 MG/2.5 ML INH IH SCH ×3 (07:09→19:34)
[2022-10-05] MEDS: POTASSIUM CHLORIDE 10MEQ/100ML 100 ML IV PRN ×2 (07:39→08:55)
[2022-10-05] MEDS: METOPROLOL TARTRATE 25 MG TAB PO SCH ×4 (07:39→20:16)
[2022-10-05] MEDS: FUROSEMIDE 40MG VIAL IV SCH ×3 (07:40→20:17)
[2022-10-05] MEDS: FAMOTIDINE 20MG TAB PO SCH ×2 (08:22→20:16)
[2022-10-05] MEDS: LORATADINE 10 MG TABLET PO SCH (08:22)
[2022-10-05] MEDS: FISH OIL 1000 MG/CAP PO SCH ×2 (08:22→20:16)
[2022-10-05] MEDS: LACTOBACILLUS RHAMNOSUS GG 1 EACH CAP.SPRINK PO SCH ×3 (08:22→20:16)
[2022-10-05] MEDS: CILOSTAZOL 100 MG TAB PO SCH ×2 (08:22→20:16)
[2022-10-05] MEDS ORDERED: POTASSIUM CHLORIDE 10% ELIXIR 20 MEQ/15 ML UDCUP PO ONE (09:00)
[2022-10-05] MEDS ORDERED: IPRATROPIUM 0.5 MG/2.5 ML INH IH ONE (11:01)
[2022-10-05] MEDS: CEFTRIAXONE 2GM VIAL IVPB SCH (13:53)
[2022-10-05 14:07] LABS: CREATININE 0.8 mg/dL (0.5-1.5); POTASSIUM 3.5 mmol/L (3.5-5.1)
[2022-10-05] MEDS: DIPHENOXYLATE HCL/ATROPINE 2.5/0.025 MG TAB PO PRN (15:20)
[2022-10-05] MEDS: ATORVASTATIN 10 MG TABLET PO SCH (20:16)
[2022-10-06] VITALS (12 sets, daily range): BP systolic 118–151; BP diastolic 53–78; PULSE 55–106; RESP 16–18; O2SAT 98–99
[2022-10-06] MEDS: IPRATROPIUM 0.5 MG/2.5 ML INH IH SCH ×4 (00:49→18:43)
[2022-10-06] MEDS ORDERED: SODIUM CHLORIDE 3% FOR INHALATION 4 ML/AMP VIAL.NEB IH ONE ×3 (00:58→18:22)
[2022-10-06] MEDS: CYCLOBENZAPRINE HCL 10 MG TABLET PO PRN (02:46)
[2022-10-06] MEDS: METRONIDAZOLE 500MG/100ML BAG 100 ML IVPB SCH ×2 (05:05→15:47)
[2022-10-06] MEDS: METOPROLOL TARTRATE 25 MG TAB PO SCH ×3 (05:06→20:50)
[2022-10-06] MEDS: FUROSEMIDE 40MG VIAL IV SCH ×2 (05:06→15:47)
[2022-10-06 05:34] LABS: HEMATOCRIT 35.8 % (36-48); MEAN CORPUSCULAR HEMOGLOBIN 29.6 pg (27.0-33.0); MEAN CORPUSCULAR HGB CONC 32.1 g/dL (32.0-36.0); MEAN CORPUSCULAR VOLUME 92.3 fL (79-99); RED BLOOD CELL COUNT(AUTO) 3.88 MIL/uL (4.00-5.50); RED CELL DISTRIBUTION WIDTH 13.2 % (11.0-15.5); WHITE BLOOD COUNT (AUTO) 9.7 K/uL (4.8-10.8)
[2022-10-06] MEDS: INSULIN HUMULIN R 100 UNIT/ML 3ML SQ SCH ×4 (05:43→20:51)
[2022-10-06 05:57] LABS: CREATININE 0.7 mg/dL (0.5-1.5); PHOSPHORUS 2.2 mg/dL (2.5-4.9)
[2022-10-06] MEDS: BUDESONIDE 0.25 MG/2 ML INH IH SCH ×2 (06:31→18:43)
[2022-10-06] MEDS: FAMOTIDINE 20MG TAB PO SCH ×2 (09:00→20:50)
[2022-10-06] MEDS: LORATADINE 10 MG TABLET PO SCH (09:00)
[2022-10-06] MEDS: FISH OIL 1000 MG/CAP PO SCH ×2 (09:00→20:49)
[2022-10-06] MEDS: LACTOBACILLUS RHAMNOSUS GG 1 EACH CAP.SPRINK PO SCH ×3 (09:00→20:49)
[2022-10-06] MEDS: CILOSTAZOL 100 MG TAB PO SCH ×2 (09:01→20:50)
[2022-10-06] MEDS ORDERED: ENOXAPARIN SODIUM 40 MG/0.4 ML SYRINGE SQ SCH (10:00)
[2022-10-06] MEDS: NEUTRA-PHOS PACKET 1 EACH PO SCH ×2 (10:53→20:50)
[2022-10-06] MEDS ORDERED: LIDOCAINE 5% TOPICAL PATCH TP SCH (15:00)
[2022-10-06] MEDS: CEFTRIAXONE 2GM VIAL IVPB SCH (15:47)
[2022-10-06] MEDS: DIPHENOXYLATE HCL/ATROPINE 2.5/0.025 MG TAB PO PRN (17:38)
[2022-10-06] MEDS: ATORVASTATIN 10 MG TABLET PO SCH (20:49)
== END 2022-10-06 21:18 | DRG 871 ==
LOC: EDH 09:41 → EDHIP 12:00 → 2BH 09-26 00:32 → 4DH 09-27 12:00
PROVIDERS: ADMIT Hospitalist; ATTEND Hospitalist
PROC: 02HV33Z Insertion of Infusion Device into Superior Vena Cava, Percutaneous Approach (ICD-10-PCS; principal; 2022-09-26)
DX: A41.9 Sepsis, unspecified organism (principal); I50.33 Acute on chronic diastolic (congestive) heart failure; J18.9 Pneumonia, unspecified organism; J96.01 Acute respiratory failure with hypoxia; R65.21 Severe sepsis with septic shock; J44.0 Chronic obstructive pulmonary disease with (acute) lower respiratory infection; E87.1 Hypo-osmolality and hyponatremia; N17.9 Acute kidney failure, unspecified; N30.00 Acute cystitis without hematuria; N18.4 Chronic kidney disease, stage 4 (severe); J44.1 Chronic obstructive pulmonary disease with (acute) exacerbation; E87.20 Acidosis, unspecified; I13.0 Hypertensive heart and chronic kidney disease with heart failure and stage 1 through stage 4 chronic kidney disease, or unspecified chronic kidney disease; I48.91 Unspecified atrial fibrillation; Z20.822 Contact with and (suspected) exposure to COVID-19; E87.6 Hypokalemia; D50.9 Iron deficiency anemia, unspecified; F41.9 Anxiety disorder, unspecified; K52.9 Noninfective gastroenteritis and colitis, unspecified; D64.9 Anemia, unspecified; K21.9 Gastro-esophageal reflux disease without esophagitis; E11.22 Type 2 diabetes mellitus with diabetic chronic kidney disease; I12.9 Hypertensive chronic kidney disease with stage 1 through stage 4 chronic kidney disease, or unspecified chronic kidney disease; E83.42 Hypomagnesemia; E86.0 Dehydration; E87.8 Other disorders of electrolyte and fluid balance, not elsewhere classified; F17.210 Nicotine dependence, cigarettes, uncomplicated; Z83.3 Family history of diabetes mellitus
CPT/HCPCS: 36415; 36600; 71045; 71270; 74018; 76604; 76770; 80048; 80053; 81001; 82533; 82565; 82570; 82607; 82728; 82803; 82948; 83036; 83605; 83735; 83880; 84100; 84145; 84295; 84443; 84484; 84550; 85025; 85027; 85378; 85610; 85651; 85730; 86140; 87088; 87324; 87449; 87507; 87635; 87804; 93005; 93306; 93356; 94640; 94664; 94667; 94668; 94760; C1751; C1894; G0378; J0456; J0696; J1650; J1756; J1940; J2270; J2405; J3475; J3480; J3490; J7030; J7050; Q9967

== ENCOUNTER 2023-09-08 10:16 | Emergency (ER) | payer OTHER, MEDICARE ==
[~2023-09-08] VITALS: Ht 157.5 cm; Wt 67.1 kg
[~2023-09-08 10:16] MED LIST changes: -ACET-2123 PO; -AMLO5TAB4 PO; -ASPI-1443 PO; -ATOR40TA71 PO; -CALC-1158 PO; +CILO100T3 PO; +FISH1CAP27 PO; -HYDR-3421 PO; -HYDR25TA PO; +LORA10TA7 PO; -MONT-46 PO; -MONT-47 PO; -OMEP20CA12 PO; -PRED20B PO; -TRAM50TA4 PO
[2023-09-08] MEDS: 0.9%NACL 1000ML 1,000 ML IV ONE (10:37)
[2023-09-08] MEDS: ONDANSETRON 4MG INJ IVP ONE (10:37)
[2023-09-08] MEDS: MECLIZINE HCL 25 MG TABLET PO ONE (10:37)
[2023-09-08] MEDS: SOLU-MEDROL 125MG VIAL IVP ONE (10:37)
[2023-09-08 11:17] LABS: BASOPHILS # (AUTO) 0.03 K/uL (0.00-0.20); BASOPHILS % (AUTO) 0.4 % (0.0-5.0); EOSINOPHILS # (AUTO) 0.07 K/uL (0.00-0.70); EOSINOPHILS % (AUTO) 0.9 % (0.0-8.0); HEMATOCRIT 41.4 % (36-48); IMMATURE GRANULOCYTE ABSOLUTE 0.02 K/uL (0-1); LYMPHOCYTES # (AUTO) 2.8 K/uL (1.0-4.8); LYMPHOCYTES % (AUTO) 37.2 % (21.0-51.0); MEAN CORPUSCULAR HEMOGLOBIN 31.9 pg (27.0-33.0); MEAN CORPUSCULAR HGB CONC 33.3 g/dL (32.0-36.0); MEAN CORPUSCULAR VOLUME 95.8 fL (79-99); MONOCYTES # (AUTO) 0.6 K/uL (0.1-1.0); MONOCYTES % (AUTO) 7.4 % (3.0-13.0); NEUTROPHILS % (AUTO) 53.8 % (40.0-77.0); PLATELET COUNT (AUTO) 261 K/uL (130-400); RED BLOOD CELL COUNT(AUTO) 4.32 MIL/uL (4.00-5.50); RED CELL DISTRIBUTION WIDTH 12.8 % (11.0-15.5); WHITE BLOOD COUNT (AUTO) 7.4 K/uL (4.8-10.8)
[2023-09-08 11:29] LABS: ALBUMIN 3.9 g/dL (3.5-5.0); BILIRUBIN,TOTAL 0.4 mg/dL (0.2-1.0); CREATININE 0.8 mg/dL (0.5-1.0); TOTAL PROTEIN, SERUM 7.3 g/dL (6.0-8.3)
[2023-09-08] MEDS ORDERED: MECL-302 PO (11:53)
[2023-09-08 11:55] VITALS: BP 152/68; PULSE 66; RESP 18; O2SAT 99
== END 2023-09-08 12:18 | disposition home or self-care (01) ==
LOC: EDH 10:16
DX: H81.10 Benign paroxysmal vertigo, unspecified ear (principal); N28.9 Disorder of kidney and ureter, unspecified; F41.9 Anxiety disorder, unspecified; J45.909 Unspecified asthma, uncomplicated; E11.9 Type 2 diabetes mellitus without complications; E78.00 Pure hypercholesterolemia, unspecified; I10 Essential (primary) hypertension; Z72.0 Tobacco use
CPT/HCPCS: 99284; 96374; 96361; 96375; 84484; 80053; 85025; 36415; 93005; J7030; J2919; J2405

== ENCOUNTER 2024-02-01 09:14 | Emergency (ER) | payer OTHER, MEDICARE ==
[~2024-02-01] VITALS: Ht 157.5 cm; Wt 66.7 kg
[~2024-02-01 09:14] MED LIST changes: +MECL-302 PO
--- NOTE | 2024-02-01 09:50 | HMCIMG ---
CHEST 1VW HISTORY: Abdominal pain COMPARISON: None FINDINGS: A frontal projection of the chest was obtained. Prominent interstitial markings are seen with possible superimposed infiltrates. The heart is borderline enlarged. Degenerative changes are seen. No evidence of aortic calcification is seen. IMPRESSION: 1. Prominent interstitial markings are seen.
[2024-02-01 10:21] LABS: BASOPHILS # (AUTO) 0.02 K/uL (0.00-0.20); BASOPHILS % (AUTO) 0.2 % (0.0-5.0); EOSINOPHILS # (AUTO) 0.07 K/uL (0.00-0.70); EOSINOPHILS % (AUTO) 0.8 % (0.0-8.0); HEMATOCRIT 38.6 % (36-48); IMMATURE GRANULOCYTE ABSOLUTE 0.04 K/uL (0-1); LYMPHOCYTES # (AUTO) 1.9 K/uL (1.0-4.8); LYMPHOCYTES % (AUTO) 22.2 % (21.0-51.0); MEAN CORPUSCULAR HEMOGLOBIN 32.1 pg (27.0-33.0); MEAN CORPUSCULAR HGB CONC 32.6 g/dL (32.0-36.0); MEAN CORPUSCULAR VOLUME 98.5 fL (79-99); MONOCYTES # (AUTO) 0.6 K/uL (0.1-1.0); MONOCYTES % (AUTO) 6.6 % (3.0-13.0); NEUTROPHILS % (AUTO) 69.7 % (40.0-77.0); PLATELET COUNT (AUTO) 330 K/uL (130-400); RED BLOOD CELL COUNT(AUTO) 3.92 MIL/uL (4.00-5.50); RED CELL DISTRIBUTION WIDTH 12.3 % (11.0-15.5); WHITE BLOOD COUNT (AUTO) 8.7 K/uL (4.8-10.8)
[2024-02-01 10:27] LABS: CREATININE 0.9 mg/dL (0.5-1.0); POTASSIUM 3.5 mmol/L (3.5-5.1)
[2024-02-01 10:32] LABS: ALBUMIN 3.8 g/dL (3.5-5.0); BILIRUBIN,TOTAL 0.5 mg/dL (0.2-1.0)
--- NOTE | 2024-02-01 11:22 | ERN ---
ED Note History of Present Illness Stated Complaint: EPIGASTRIC PAIN, CHEST DISCOMFORT Chief Complaint: Abdominal Pain Time Seen by MD: 09:19 Dictation: This 73-year-old female presents in the emergency department stating that yesterday after walking outside she developed a sharp pain in the lower substernal subxiphoid area radiating around into the ribs which has been constant since onset. The symptoms are exacerbated by coughing, deep breath, turning over in bed and local pressure. She denies significant shortness of breath. There was no acid indigestion The patient has a history of asthma has had some cough but denies fever, purulent sputum, severe wheezing, nausea or vomiting or chest pressure. Patient did not take her usual medications because she was coming in the [facility] department. She did not treat her pain with the anything. Other medical problems include hypertension, asthma, anxiety, diabetes, arthritis and hyperlipidemia. Patient quit smoking. She does not drink use recreational drugs. She lives at home with her daughter Allergies: Coded Allergies: No Allergy Information Available (Verified Allergy, Unknown, 10/17/15) No Known Drug Allergies (Unverified Allergy, Unknown, 10/05/22) Home Meds Active Scripts Meclizine HCl (Meclizine HCl) 25 Mg Tablet, 25 MG PO TID for vertigo, #30 TAB 0 Refills Prov:BRETT DIAZ NP 09/08/23 Budesonide/Formoterol Fumarate (Symbicort 80-4.5 Mcg Inhaler) 10.2 Gm Inhr, 10.2 GM IH BID for 30 Days, #1 INH 1 Refill Prov:ADILSON RICHMOND MD 07/22/22 Reported Medications Cilostazol (Cilostazol) 100 Mg Tablet, 100 MG PO BID, TAB 09/26/22 [place]-3 Fatty Acids/Fish Oil ([place] 3 1,000 mg Softgel) 1 Each Capsule, 1 EACH PO BID, CAP 09/25/22 Loratadine (Loratadine) 10 Mg Tablet, 10 MG PO DAILY, TAB 09/25/22 Past Medical History Past Medical History: Anxiety, Asthma, Diabetes-Type II, High Cholesterol, Hypertension Additional Past Medical Hx: Tobacco abuse Surgical History: None Family History: Negative Social History: Negative, Lives with family History: Not Applicable RN Note Reviewed/Agreed w/PFSH: Yes Review of System Dictation All pertinent systems reviewed, negative except as documented in the HPI The ROS is obtained from patient GENERAL/CONSTITUTIONAL: Negative except as documented in HPI. ENT: Negative except as documented in HPI. CARDIOVASCULAR: Negative except as documented in HPI. RESPIRATORY: Negative except as documented in HPI. GASTROINTESTINAL: Negative except as documented in HPI. GENITOURINARY: Negative except as documented in HPI. MUSCULOSKELETAL: Negative except as documented in HPI. SKIN: Negative except as documented in HPI. NEUROLOGIC: Negative except as documented in HPI. Initial Vital Sign VS Vital Signs Date Time Temp Pulse Resp B/P (MAP) Pulse Ox O2 Delivery O2 Flow Rate FiO2 02/01/24 09:16 98.1 87 16 182/91 96 Room Air 0 Physical Exam Dictation VITAL SIGNS: note is made of triage vital signs CONSTITUTIONAL: This is a comfortable patient who is awake, alert, and appropriately interactive. HEAD: Normocephalic, Atraumatic. EYES: Periorbital areas with no swelling, redness, or edema. Lids and lashes are normal. Conjunctival injection is absent. Sclera anicteric. Pupils equal, round, reactive to light. ENT: No nasal discharge noted. Posterior pharynx is without exudate, redness, swelling, masses, or evidence of obstruction. Uvula midline. Mucous membranes moist. NECK: Trachea midline, no masses palpated, and no cervical lymphadenopathy. No swelling. Supple, full range of motion without nuchal rigidity. No vertebral point tenderness. No meningismus. CHEST/AXILLA: Normal chest wall appearance and motion. There is tenderness which reproduces the patient's pain present in the lower sternum and xiphoid area and over the ribs bilaterally. No crepitus. CV: Normal rate, regular rhythm. No murmur. No edema. RESPIRATORY:Respiratory rate is normal. Bilateral equal breath sounds with good airflow. Mild wheezing is noted especially on expiration. No increased work of breathing, no retractions. ABDOMEN: Inspection normal. No distention is appreciated. Bowel sounds are normal. No mass or organomegaly is appreciated. There is no tenderness. No rebound. No rigidity. No voluntary or involuntary guarding. BACK: Inspection is normal. No midline tenderness is appreciated. The patient appears comfortable when moving. : No CVA tenderness or bladder tenderness. SKIN: Warm, dry, with normal turgor. Capillary refill less than 3 seconds. Normal color.No rash. No cellulitis or abscess. No evidence of acute injury. MS/Extremity: There is no calf tenderness. Baseline range of motion is noted in all 4 extremities. There are no deformities. NEURO: Awake and alert, lucid. Facies symmetric and speech is clear. Motor strength 5/5 in all extremities. Sensory grossly intact. PSYCH: Patient is appropriately attentive and cooperative without evidence of hallucination. Results (Laboratory/Radiology) Laboratory/Radiology Laboratory Tests Test 02/01/24 09:59 02/01/24 11:18 02/01/24 13:19 White Blood Count 8.7 K/uL (4.8-10.8) Red Blood Count 3.92 MIL/uL (4.00-5.50) L Hemoglobin 12.6 g/dL (12.0-16.0) Hematocrit 38.6 % (36-48) Mean Corpuscular Volume 98.5 fL (79-99) Mean Corpuscular Hemoglobin 32.1 pg (27.0-33.0) Mean Corpuscular Hemoglobin Concent 32.6 g/dL (32.0-36.0) Red Cell Distribution Width 12.3 % (11.0-15.5) Platelet Count 330 K/uL (130-400) Mean Platelet Volume 9.9 fL (7.5-10.5) Immature Granulocyte % (Auto) 0.5 % (0-1) Neutrophils (%) (Auto) 69.7 % (40.0-77.0) Lymphocytes (%) (Auto) 22.2 % (21.0-51.0) Monocytes (%) (Auto) 6.6 % (3.0-13.0) Eosinophils (%) (Auto) 0.8 % (0.0-8.0) Basophils (%) (Auto) 0.2 % (0.0-5.0) Neutrophils # (Auto) 6.0 K/uL (1.8-7.7) Lymphocytes # (Auto) 1.9 K/uL (1.0-4.8) Monocytes # (Auto) 0.6 K/uL (0.1-1.0) Eosinophils # (Auto) 0.07 K/uL (0.00-0.70) Basophils # (Auto) 0.02 K/uL (0.00-0.20) Absolute Immature Granulocyte (auto 0.04 K/uL (0-1) Nucleated Red Blood Cells 0.0 % (0.0-0.19) Sodium Level 134 mmol/L (136-145) L Potassium Level 3.5 mmol/L (3.5-5.1) Chloride Level 98 mmol/L (101-111) L Carbon Dioxide Level 28 mmol/L (21-32) Blood Urea Nitrogen 15 mg/dL (7-18) Creatinine 0.9 mg/dL (0.5-1.0) Glomerular Filtration Rate Calc 67 mL/min (>90) Random Glucose 129 mg/dL (70-105) H Total Calcium 9.3 mg/dL (8.5-10.1) Total Bilirubin 0.5 mg/dL (0.2-1.0) Aspartate Amino Transf (AST/SGOT) 18 U/L (10-37) Alanine Aminotransferase (ALT/SGPT) 18 U/L (12-78) Alkaline Phosphatase 100 U/L (50-136) Troponin I High Sensitivity 4 ng/L (4-50) 5 ng/L (4-50) B-Type Natriuretic Peptide 64 pg/mL (0-100) Total Protein 8.0 g/dL (6.0-8.3) Albumin 3.8 g/dL (3.5-5.0) Lipase 16 U/L (16-77) Urine Color LIGHT-YELLOW (YELLOW) Urine Appearance CLOUDY (CLEAR) H Urine pH 6.0 (5.0-8.0) Urine Specific [place] 1.015 (1.001-1.031) Urine Protein 20 mg/dL (NEGATIVE) H Urine Glucose (UA) NEGATIVE mg/dL (NEGATIVE) Urine Ketones NEGATIVE mg/dL (NEGATIVE) Urine Occult Blood NEGATIVE (NEGATIVE) Urine Nitrate NEGATIVE (NEGATIVE) Urine Bilirubin NEGATIVE mg/dL (NEGATIVE) Urine Urobilinogen 0.2 mg/dL (0.2-1.0) Urine Leukocyte Esterase 250 Jyoti/uL (NEGATIVE) H Urine RBC 2-5 /HPF (0-1) H Urine WBC 6-10 /HPF (0-1) H Urine Squamous Epithelial Cells FEW /HPF (0-2) Urine Bacteria None /HPF (None Seen) Labs Reviewed?: Yes EKG Comment: Time reviewed: 9:40 a.m. EKG number; 1 Rate and rhythm: Sinus arrhythmia versus multiple PACs with occasional PVC at 86 beats per minute [place]: +62 Morphology:Normal [place] interval: normal QT interval: normal ST/[place]: normal Impression: sinus rhythm without STEMI Comparison EKG: none EKG INTERPRETATION by Dr. Dee Robins ED Course ED Course Orders Procedure Category Date Status Time Cbc With Differential LAB 02/01/24 Complete 09:19 Comprehensive LAB 02/01/24 Complete Metabolic Panel 09:19 Urinalysis Profile LAB 02/01/24 Complete 09:19 12 Lead Ekg Tracing- EKG 02/01/24 Logged Technical 09:19 Troponin I High LAB 02/01/24 Complete Sensitivity 09:19 Chest 1vw RAD 02/01/24 Resulted 09:19 Lipase LAB 02/01/24 Complete 11:20 Culture Urine KAILYN 02/01/24 In Process 11:40 Acetaminophen 325 Tab PHA 02/01/24 Complete (Tylenol 325mg Tab 12:00 Lidocaine (Lidoderm PHA 02/01/24 Complete Patch 5%) 12:00 Nitroglycerin 1gm PHA 02/01/24 Complete Oint (Nitroglycerin 1g 12:00 *Nursing CPOE 02/01/24 Transmitted Communication: 11:44 B-Type Natriuretic LAB 02/01/24 Complete Peptide 11:44 Ipratropium/Albuterol PHA 02/01/24 Complete Neb (Duoneb) 12:00 Troponin I High LAB 02/01/24 Complete Sensitivity 11:44 Current Medications Medications (Trade) Dose Ordered Sig/Bharti Route PRN Reason Start Time Stop Time Status Last Admin Dose Admin Acetaminophen (TYLenol 325MG TAB) 650 mg ONCE ONCE PO 02/01/24 12:00 02/01/24 12:01 DC 02/01/24 12:02 Albuterol (DUOneb) 1 udvial ONCE ONCE IH 02/01/24 12:00 02/01/24 12:01 DC 02/01/24 12:00 Lidocaine (Lidoderm Patch 5%) 1 patch ONCE ONCE TP 02/01/24 12:00 02/01/24 12:01 DC 02/01/24 12:02 Nitroglycerin (Nitroglycerin 1gm Oint) 1 inch ONCE ONCE TD 02/01/24 12:00 02/01/24 12:01 DC 02/01/24 12:01 Vital Signs Date Time Temp Pulse Resp B/P (MAP) Pulse Ox O2 Delivery O2 Flow Rate FiO2 02/01/24 12:03 94 20 02/01/24 09:16 98.1 87 16 182/91 96 Room Air 0 HEART Score Response (Comments) Value History: Low suspicion (0) 0 EKG: Repolarization changes 1 Age: > 65yrs (+2) 2 Risk Factors: 3+ risk factors (+2) 2 Initial Troponin: Normal limit (0) 0 HEART Score Risk: Mod Risk for MACE (4-6) Total 5 Medical Decision Making MDM INITIAL IMPRESSION Initial history and physical concerning for reproducible chest wall pain in a patient with significant cardiac risk factors. Doubt this represents acute coronary ischemia. Low index of suspicion for PE as the patient is not short of breath, tachycardic or in any distress and the pain has been constant and is reproducible Contributing medical problems: Asthma, diabetes, hypertension and hyperlipidemia I have reviewed the triage nursing notes and vital signs. The patient is hypertensive but the heart rate is normal and O2 saturation is normal Initial plan: Laboratory screening and symptomatic therapy DATA REVIEW I have reviewed additional NN, repeat VS, and monitoring where indicated. Blood pressure has improved. [place] diagnostic results: CBC, LFTs, lipase, all normal. Two serial troponins are negative. Electrolytes are normal with the exception of a sodium of 134 and glucose of 129. Chest x-ray is negative for any acute finding Other independent historian: none Review of external data: Patient was last seen in the emergency department in September for vertigo ED COURSE Interventions: Patient received Tylenol for pain Reassessment: Patient has had complete resolution of pain, blood pressures improved. There was no respiratory distress and no evidence of acute coronary ischemia DISPOSITION Final diagnostic impression: Chest wall pain, mild asthma exacerbation I discussed my findings, clinical impression and treatment recommendations with the patient. I have reviewed the social factors contributing to the patient's presentation and disposition planning. My final plan for disposition was made based upon clinical findings, response to treatment and discussion with the patient regarding management options. Hospitalization is not indicated due to low risk of short term progression, complication, morbidity or mortality related to the current diagnosis At the time of discharge, the vital signs are within acceptable limits. Repeat examination: No significant new changes. Patient has been able to take oral liquids. The discharge treatment plan includes recommendation for Tylenol for the pain Incidental findings discussed: none Questions were invited and answered in layman's terms. I have emphasized my follow-up recommendations and reviewed ED return precautions. I have answered any questions in layman's terms. The patient understands that they will have to arrange for out-patient follow-up for recheck of today's condition. The patient is stable and appropriate for discharge from the ED. This dictation was prepared using Kobo voice recognition software. Occasional voice recognition errors may occur. When identified, these errors have been corrected. While every attempt is made to correct errors during dictation, errors may still exist. DX & DISP Disposition: Discharge Decision to Admit Date: Feb 01, 2024 Decision to Admit Time: 15:05 Departure Impression: Primary Impression: Chest wall pain Additional Impression: Mild asthma exacerbation Condition: Stable Additional Instructions: Take Tylenol 1-2 tablets every 4-6 hours as needed for pain. Continue all your usual home medications. Return to the emergency department for difficulty breathing, worsening pain, fainting or other worsening. Follow up with your family physician if you are not back to normal on Saturday Referrals: EMBER UGALDE (PCP) Time of Disposition: 15:06 DEE ROBINS MD Feb 01, 2024 11:22
[2024-02-01 11:31] LABS: APPEARANCE,URINE CLOUDY (CLEAR); BILIRUBIN,URINE NEGATIVE (NEGATIVE); COLOR,URINE LIGHT-YELLOW (YELLOW); GLUCOSE, URINE (UA) NEGATIVE (NEGATIVE); KETONES,URINE NEGATIVE (NEGATIVE); LEUKOCYTE ESTERASE ,URINE 250 Leu/uL (NEGATIVE); NITRATE,URINE NEGATIVE (NEGATIVE); OCCULT BLOOD,URINE NEGATIVE (NEGATIVE); PROTEIN,URINE 20 mg/dL (NEGATIVE); UROBILINOGEN,URINE 0.2 mg/dL (0.2-1.0)
[2024-02-01 11:39] LABS: ADD UA MICROSCOPIC YES
[2024-02-01 11:43] LABS: MUCUS,URINE RARE LPF (None Seen); SQUAMOUS EPITHELIAL CELL,UR FEW /HPF (0-2)
[2024-02-01] MEDS: IpraTROPium/alBUTERol SULFATE 3 ML SOLUTION IH ONE (12:00)
[2024-02-01] MEDS: NITROGLYCERIN 1GM OINT 1 INCH/1GM TD ONE (12:01)
[2024-02-01] MEDS: LIDOCAINE 5% TOPICAL PATCH TP ONE (12:02)
[2024-02-01] MEDS: acetaMINOPHEN 325 MG TAB PO ONE (12:02)
[2024-02-01 12:03] VITALS: PULSE 94; RESP 20
[2024-02-01 15:17] VITALS: BP 148/79; PULSE 85; RESP 14; TEMP 98.7; O2SAT 95
--- NOTE | 2024-02-01 19:53 | EKG ---
[facility] Test Date: 2024-02-01 Test Time: 09:35:59 Pat Name: HILARY HANSEN Department: ED Room: Gender: F Skatesman: [id number] : 1950 Requested By: DEE ROBINS Order Number: [id number] Reading MD: Daniela Jin Measurements Intervals [place] Rate: 86 P: 70 [place]: 156 QRS: 62 QRSD: 79 T: 9 QT: 355 QTc: 426 Interpretive Statements Sinus rhythm Multiple premature complexes, vent & supraven Probable left atrial enlargement Compared to ECG 09/08/2023 10:36:00 No significant changes Electronically Signed On 02-02-2024 11:34:27 IT TECHNICAL ARCHITECT by Daniela Jin Please click the below link to view image of tracing.
== END 2024-02-01 15:35 | disposition home or self-care (01) ==
LOC: EDH 09:14
DX: J45.901 Unspecified asthma with (acute) exacerbation (principal); R07.89 Other chest pain; E11.9 Type 2 diabetes mellitus without complications; E78.00 Pure hypercholesterolemia, unspecified; I10 Essential (primary) hypertension; Z79.02 Long term (current) use of antithrombotics/antiplatelets; Z79.51 Long term (current) use of inhaled steroids; Z79.899 Other long term (current) drug therapy
CPT/HCPCS: 36415; 71045; 80053; 81001; 83690; 83880; 84484; 85025; 87086; 93005; 94640; 99285

== ENCOUNTER 2024-02-07 06:30 | Emergency (ER) | payer OTHER, MEDICARE ==
[~2024-02-07] VITALS: Ht 157.5 cm; Wt 66.7 kg
[2024-02-07 07:14] LABS: BASOPHILS # (AUTO) 0.02 K/uL (0.00-0.20); BASOPHILS % (AUTO) 0.3 % (0.0-5.0); EOSINOPHILS # (AUTO) 0.06 K/uL (0.00-0.70); EOSINOPHILS % (AUTO) 0.8 % (0.0-8.0); HEMATOCRIT 43.1 % (36-48); IMMATURE GRANULOCYTE ABSOLUTE 0.02 K/uL (0-1); LYMPHOCYTES # (AUTO) 2.4 K/uL (1.0-4.8); LYMPHOCYTES % (AUTO) 32.3 % (21.0-51.0); MEAN CORPUSCULAR HEMOGLOBIN 31.8 pg (27.0-33.0); MEAN CORPUSCULAR HGB CONC 32.7 g/dL (32.0-36.0); MEAN CORPUSCULAR VOLUME 97.3 fL (79-99); MONOCYTES # (AUTO) 0.5 K/uL (0.1-1.0); MONOCYTES % (AUTO) 7.2 % (3.0-13.0); NEUTROPHILS # (AUTO) 4.4 K/uL (1.8-7.7); NEUTROPHILS % (AUTO) 59.1 % (40.0-77.0); PLATELET COUNT (AUTO) 342 K/uL (130-400); RED BLOOD CELL COUNT(AUTO) 4.43 MIL/uL (4.00-5.50); RED CELL DISTRIBUTION WIDTH 12.3 % (11.0-15.5); WHITE BLOOD COUNT (AUTO) 7.4 K/uL (4.8-10.8)
[2024-02-07] MEDS: PANTOPrazole 40 MG/VIAL IVP ONE (07:24)
[2024-02-07] MEDS: morPHINE 2 MG SYG IVP ONE (07:24)
[2024-02-07] MEDS: ondanSETRON 4MG INJ IVP ONE (07:24)
--- NOTE | 2024-02-07 07:25 | ERN ---
General Chief Complaint: Abdominal Pain Stated Complaint: C/O EPIGASTRIC PAIN RADIATING TO RIGHT SIDE Time Seen by MD: 07:07 Source: patient History of Present Illness Initial Comments Patient is a 73 y/o female here for evaluation of epigastric pain , she states has been ongoing since . She states she went outside to throw trash and started having epigastric discomforts radiating to right upper abd area. She states she dumont not remember anyt trauama. Allergies: Coded Allergies: No Allergy Information Available (Verified Allergy, Unknown, 10/17/15) No Known Drug Allergies (Unverified Allergy, Unknown, 10/05/22) Home Meds Active Scripts Cephalexin Monohydrate (Keflex) 500 Mg Cap, 1 CAP PO BID for 10 Days, #20 CAP 0 Refills Prov:TSERING ELIZABETH MD 02/07/24 Meclizine HCl (Meclizine HCl) 25 Mg Tablet, 25 MG PO TID for vertigo, #30 TAB 0 Refills Prov:BRETT DIAZ NP 09/08/23 Budesonide/Formoterol Fumarate (Symbicort 80-4.5 Mcg Inhaler) 10.2 Gm Inhr, 10.2 GM IH BID for 30 Days, #1 INH 1 Refill Prov:ADILSON RICHMOND MD 07/22/22 Reported Medications Cilostazol (Cilostazol) 100 Mg Tablet, 100 MG PO BID, TAB 09/26/22 [place]-3 Fatty Acids/Fish Oil ([place] 3 1,000 mg Softgel) 1 Each Capsule, 1 EACH PO BID, CAP 09/25/22 Loratadine (Loratadine) 10 Mg Tablet, 10 MG PO DAILY, TAB 09/25/22 Past Medical History Past Medical History: Diabetes-Type II, High Cholesterol, Hypertension Medical History Other: Tobacco abuse Past Surgical History: Unknown Family History Family History: Negative Social History Social History: Negative, Lives with family Female( History) History: Not Applicable Results Laboratory and Microbiology Lab and Micro Result Laboratory Tests Test 02/07/24 07:00 02/07/24 09:17 White Blood Count 7.4 K/uL (4.8-10.8) Red Blood Count 4.43 MIL/uL (4.00-5.50) Hemoglobin 14.1 g/dL (12.0-16.0) Hematocrit 43.1 % (36-48) Mean Corpuscular Volume 97.3 fL (79-99) Mean Corpuscular Hemoglobin 31.8 pg (27.0-33.0) Mean Corpuscular Hemoglobin Concent 32.7 g/dL (32.0-36.0) Red Cell Distribution Width 12.3 % (11.0-15.5) Platelet Count 342 K/uL (130-400) Mean Platelet Volume 9.7 fL (7.5-10.5) Immature Granulocyte % (Auto) 0.3 % (0-1) Neutrophils (%) (Auto) 59.1 % (40.0-77.0) Lymphocytes (%) (Auto) 32.3 % (21.0-51.0) Monocytes (%) (Auto) 7.2 % (3.0-13.0) Eosinophils (%) (Auto) 0.8 % (0.0-8.0) Basophils (%) (Auto) 0.3 % (0.0-5.0) Neutrophils # (Auto) 4.4 K/uL (1.8-7.7) Lymphocytes # (Auto) 2.4 K/uL (1.0-4.8) Monocytes # (Auto) 0.5 K/uL (0.1-1.0) Eosinophils # (Auto) 0.06 K/uL (0.00-0.70) Basophils # (Auto) 0.02 K/uL (0.00-0.20) Absolute Immature Granulocyte (auto 0.02 K/uL (0-1) Nucleated Red Blood Cells 0.0 % (0.0-0.19) Sodium Level 134 mmol/L (136-145) L Potassium Level 3.9 mmol/L (3.5-5.1) Chloride Level 99 mmol/L (101-111) L Carbon Dioxide Level 24 mmol/L (21-32) Blood Urea Nitrogen 16 mg/dL (7-18) Creatinine 0.8 mg/dL (0.5-1.0) Glomerular Filtration Rate Calc 77 mL/min (>90) Random Glucose 93 mg/dL (70-105) Total Calcium 9.8 mg/dL (8.5-10.1) Total Bilirubin 0.5 mg/dL (0.2-1.0) Direct Bilirubin < 0.1 mg/dL (0.0-0.3) Aspartate Amino Transf (AST/SGOT) 26 U/L (10-37) Alanine Aminotransferase (ALT/SGPT) 20 U/L (12-78) Alkaline Phosphatase 110 U/L (50-136) Troponin I High Sensitivity 5 ng/L (4-50) Total Protein 8.8 g/dL (6.0-8.3) H Albumin 4.0 g/dL (3.5-5.0) Lipase 17 U/L (16-77) Urine Color LIGHT-YELLOW (YELLOW) Urine Appearance CLEAR (CLEAR) Urine pH 5.5 (5.0-8.0) Urine Specific [place] 1.014 (1.001-1.031) Urine Protein 10 mg/dL (NEGATIVE) H Urine Glucose (UA) NEGATIVE mg/dL (NEGATIVE) Urine Ketones NEGATIVE mg/dL (NEGATIVE) Urine Occult Blood NEGATIVE (NEGATIVE) Urine Nitrate NEGATIVE (NEGATIVE) Urine Bilirubin NEGATIVE mg/dL (NEGATIVE) Urine Urobilinogen 0.2 mg/dL (0.2-1.0) Urine Leukocyte Esterase 25 Jyoti/uL (NEGATIVE) H Urine RBC 2-5 /HPF (0-1) H Urine WBC 11-25 /HPF (0-1) H Urine Squamous Epithelial Cells RARE /HPF (0-2) Urine Amorphous Crystals (Auto) RARE /LPF (None Seen) Urine Bacteria RARE /HPF (None Seen) Labs Reviewed?: Yes EKG/XRAY/US/CT/MRI EKG Comment 02/07/2024 time 7:31 a.m. Ventricular rate [address] wave elevation or depression NE 170 MDM MDM: DIFFERENTIAL DIAGNOSIS: GERD, GASTRITIS, GASTROENTERITIS PATIENT IS A 73-YEAR-OLD FEMALE COMING IN TO BE EVALUATED FOR ABDOMINAL DISCOMFORT. LABORATORY WORKUP NEGATIVE FOR ACUTE FINDINGS. POSITIVE FOR URINARY TRACT INFECTION. PATIENT WILL BE DISCHARGED WITH A DIAGNOSIS OF GASTRITIS WITH URINARY TRACT INFECTION. THROUGHOUT ER VISIT PATIENT HAS BEEN STABLE SHE STATES HER SYMPTOMS HAVE IMPROVED. ED Course Orders Procedure Category Date Status Time Vital Signs Per CPOE 02/07/24 Transmitted Routine 06:38 Saline Lock Iv CPOE 02/07/24 Transmitted 06:38 Cbc With Differential LAB 02/07/24 Complete 06:38 Lipase LAB 02/07/24 Complete 06:38 Urinalysis Profile LAB 02/07/24 Complete 06:38 Basic Metabolic Panel LAB 02/07/24 Complete 06:38 Morphine 2mg Syg PHA 02/07/24 Complete (Morphine 2mg Syg) 07:00 Ondansetron 4mg Inj PHA 02/07/24 Complete (Zofran 4mg Inj) 07:00 Pantoprazole 40mg Inj PHA 02/07/24 Complete (Protonix 40mg Inj 07:00 Troponin I High LAB 02/07/24 Complete Sensitivity 07:22 12 Lead Ekg Tracing- EKG 02/07/24 Complete Technical 07:22 Hepatic Function Panel LAB 02/07/24 Complete 07:21 Lidocaine Hcl 2% PHA 02/07/24 Complete Viscous (Lidocaine Hcl 10:00 Mag/Alum/Simeth 30ml PHA 02/07/24 Complete (Maalox Plus 30ml) 10:00 Culture Urine KAILYN 02/07/24 Logged 10:23 Current Medications Medications (Trade) Dose Ordered Sig/Bharti Route PRN Reason Start Time Stop Time Status Last Admin Dose Admin Al Hydroxide/Mg Hydroxide (MAALox PLUS 30ML) 30 ml ONCE ONCE PO 02/07/24 10:00 02/07/24 10:01 DC 02/07/24 10:00 Lidocaine HCl (Lidocaine HCl 2% Viscous) 10 ml ONCE ONCE PO 02/07/24 10:00 02/07/24 10:01 DC 02/07/24 10:00 Morphine Sulfate (morPHINE 2MG SYG) 2 mg ONCE ONCE IVP 02/07/24 07:00 02/07/24 07:01 DC 02/07/24 07:24 Ondansetron HCl (zoFRAN 4MG INJ) 4 mg ONCE ONCE IVP 02/07/24 07:00 02/07/24 07:01 DC 02/07/24 07:24 Pantoprazole Sodium (PROTonix 40MG INJ) 40 mg ONCE ONCE IVP 02/07/24 07:00 02/07/24 07:01 DC 02/07/24 07:24 Vital Signs Date Time Temp Pulse Resp B/P (MAP) Pulse Ox O2 Delivery O2 Flow Rate FiO2 02/07/24 07:10 97.9 63 18 148/82 97 Room Air* 0 21 02/07/24 06:32 97.9 63 20 166/84 98 Room Air HEART Score Response (Comments) Value History: Low suspicion (0) 0 EKG: Normal 0 Age: > 65yrs (+2) 2 Risk Factors: No known risk factors (0) 0 Initial Troponin: Normal limit (0) 0 HEART Score Risk: Low Risk for MACE (1-3) Total 2 DX & DISP Disposition: Discharge Departure Impression: Primary Impression: Gastritis Additional Impressions: Anxiety, UTI (urinary tract infection) Condition: Stable Scripts Cephalexin Monohydrate (Keflex) 500 Mg Cap 1 CAP PO BID for 10 Days, #20 CAP 0 Refills Prov: TSERING ELIZABETH MD 02/07/24 Additional Instructions: YOU HAVE BEEN REVIEWED IN THE EMERGENCY DEPARTMENT AT [facility] AFTER PRESENTING WITH CHEST PAIN. AFTER CONSIDERING YOUR HISTORY, YOUR RISK FACTORS, YOUR EKG AND YOUR BLOOD TEST TROPONINS, HAVE BEEN FOUND TO BE AT VERY LOW RISK LESS THAN (1 IN 100) OF HAVING A MAJOR ADVERSE CARDIAC EVENT (LIKE HEART ATTACK) IN THE NEAR FUTURE. IN THE " LOW RISK" GROUP, THE RISKS OF DOING FURTHER TESTS AND TREATMENT THE INPATIENT OUTWEIGHS THE BENEFITS. IN MANY PATIENTS IN THE LOW RISK GROUP FOR THE TEST OF ANY SORT OR UNNECESSARY, HOWEVER HE SHOULD DISCUSS THIS FURTHER WITH HIS GENERAL PRACTITIONER WHO WILL UNDERSTAND THE MEDICAL AND PERSONAL BACKGROUNDS BETTER. BECAUSE WE HAVE NEVER DECLARED YOU" NO RISK" WE WOULD SUGGEST. 1 RETURNING FOR MEDICAL REVIEW IF YOU HAVE FURTHER EPISODES OF CHEST PAIN/ARM PAIN OR OTHER CONCERNING SYMPTOMS LIKE DIZZINESS, COLLAPSE, PALPITATIONS OR SHORTNESS OF BREATH. 2. FOLLOWING UP WITH YOUR LOCAL DOCTOR WHO WILL CONSIDER THE NEED FOR FURTHER TESTING AND WILL ALSO ENSURE THAT ANY MODIFIABLE RISK FACTORS YOU MAY HAVE FOR HEART DISEASE ARE OPTIMALLY MANAGED. PATIENT WILL BE DISCHARGED IN STABLE CONDITION AT THE MOMENT DISCHARGE PATIENT STATES , NO CHEST PAIN Referrals: EMBER UGALDE (PCP) Time of Disposition: 10:33 TSERING ELIZABETH MD Feb 07, 2024 07:25
[2024-02-07 07:26] LABS: CREATININE 0.8 mg/dL (0.5-1.0); POTASSIUM 3.9 mmol/L (3.5-5.1)
--- NOTE | 2024-02-07 07:33 | EKG ---
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
[2024-02-07 08:37] LABS: ALANINE AMINOTRANSFERASE 20 U/L (12-78); ASPARTATE AMINOTRANSFERASE 26 U/L (10-37); BILIRUBIN,DIRECT < 0.1 mg/dL (0.0-0.3); BILIRUBIN,TOTAL 0.5 mg/dL (0.2-1.0); TOTAL PROTEIN, SERUM 8.8 g/dL (6.0-8.3)
[2024-02-07] MEDS: LIDOCAINE HCL 2% VISCOUS 15 ML UDCUP PO ONE (10:00)
[2024-02-07] MEDS: MAG/ALUM/SIMETH 30 ML UDCUP PO ONE (10:00)
[2024-02-07 10:03] LABS: APPEARANCE,URINE CLEAR (CLEAR); BILIRUBIN,URINE NEGATIVE (NEGATIVE); COLOR,URINE LIGHT-YELLOW (YELLOW); GLUCOSE, URINE (UA) NEGATIVE (NEGATIVE); KETONES,URINE NEGATIVE (NEGATIVE); LEUKOCYTE ESTERASE ,URINE 25 Leu/uL (NEGATIVE); NITRATE,URINE NEGATIVE (NEGATIVE); OCCULT BLOOD,URINE NEGATIVE (NEGATIVE); PH,URINE 5.5 (5.0-8.0); PROTEIN,URINE 10 mg/dL (NEGATIVE); UROBILINOGEN,URINE 0.2 mg/dL (0.2-1.0)
[2024-02-07 10:06] LABS: ADD UA MICROSCOPIC YES
[2024-02-07 10:21] LABS: BACTERIA,URINE RARE /HPF (None Seen); MUCUS,URINE RARE LPF (None Seen); SQUAMOUS EPITHELIAL CELL,UR RARE /HPF (0-2)
[2024-02-07] MEDS ORDERED: CEPH500B PO (10:33)
[2024-02-07 11:24] VITALS: BP 116/70; PULSE 81; RESP 18; TEMP 98.3; O2SAT 98
== END 2024-02-07 11:25 | disposition home or self-care (01) ==
LOC: EDH 06:30
DX: K29.70 Gastritis, unspecified, without bleeding (principal); F41.9 Anxiety disorder, unspecified; N39.0 Urinary tract infection, site not specified; E11.9 Type 2 diabetes mellitus without complications; E78.00 Pure hypercholesterolemia, unspecified; I10 Essential (primary) hypertension; Z79.02 Long term (current) use of antithrombotics/antiplatelets; Z79.51 Long term (current) use of inhaled steroids
CPT/HCPCS: 99284; 96374; 96375; 80076; 84484; 80048; 83690; 85025; 87086; 81001; 36415; 93005; J2270; J2405; J2470

== ENCOUNTER 2024-04-03 18:27 | Emergency (ER) | payer OTHER, MEDICARE ==
[~2024-04-03] VITALS: Ht 157.5 cm; Wt 67.1 kg
[~2024-04-03 18:27] MED LIST changes: +CEPH500B PO
--- NOTE | 2024-04-03 18:46 | EKG ---
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
[2024-04-03 19:01] LABS: BASOPHILS # (AUTO) 0.03 K/uL (0.00-0.20); BASOPHILS % (AUTO) 0.5 % (0.0-5.0); EOSINOPHILS # (AUTO) 0.06 K/uL (0.00-0.70); HEMATOCRIT 32.4 % (36-48); IMMATURE GRANULOCYTE ABSOLUTE 0.05 K/uL (0-1); LYMPHOCYTES # (AUTO) 1.6 K/uL (1.0-4.8); LYMPHOCYTES % (AUTO) 26.3 % (21.0-51.0); MEAN CORPUSCULAR HEMOGLOBIN 31.9 pg (27.0-33.0); MEAN CORPUSCULAR HGB CONC 32.7 g/dL (32.0-36.0); MEAN CORPUSCULAR VOLUME 97.6 fL (79-99); MONOCYTES # (AUTO) 0.4 K/uL (0.1-1.0); MONOCYTES % (AUTO) 5.8 % (3.0-13.0); NEUTROPHILS # (AUTO) 4.1 K/uL (1.8-7.7); NEUTROPHILS % (AUTO) 65.6 % (40.0-77.0); PLATELET COUNT (AUTO) 344 K/uL (130-400); RED BLOOD CELL COUNT(AUTO) 3.32 MIL/uL (4.00-5.50); RED CELL DISTRIBUTION WIDTH 13.8 % (11.0-15.5); WHITE BLOOD COUNT (AUTO) 6.2 K/uL (4.8-10.8)
[2024-04-03 19:13] LABS: CREATININE 1.4 mg/dL (0.5-1.0); POTASSIUM 4.7 mmol/L (3.5-5.1)
[2024-04-03 19:23] LABS: MAGNESIUM 2.1 mg/dL (1.80-2.40)
[2024-04-03 19:32] LABS: B-TYPE NATRIURETIC PEPTIDE 141 pg/mL (0-100)
--- NOTE | 2024-04-03 19:51 | ERN ---
ED Note History of Present Illness Stated Complaint: DIZZYNESS,MULTIPLE COMPLAINTS Chief Complaint: Chest Pain Time Seen by MD: 18:29 Dictation: Patient is a 74-year-old coming in today with complaints of right lateral and anterior chest pain onset yesterday with mild shortness a breath. She denies back pain jaw pain arm pain. No nausea vomiting. Patient's daughters with her and states she noticed it yesterday and she had complaint after she got back from adult daycare and stayed home today but quadrant did not go to see your primary care doctor. Allergies: Coded Allergies: No Allergy Information Available (Verified Allergy, Unknown, 10/17/15) No Known Drug Allergies (Unverified Allergy, Unknown, 10/05/22) Home Meds Active Scripts Cephalexin Monohydrate (Keflex) 500 Mg Cap, 1 CAP PO BID for 10 Days, #20 CAP 0 Refills Prov:TSERING ELIZABETH MD 02/07/24 Meclizine HCl (Meclizine HCl) 25 Mg Tablet, 25 MG PO TID for vertigo, #30 TAB 0 Refills Prov:BRETT DIAZ NP 09/08/23 Budesonide/Formoterol Fumarate (Symbicort 80-4.5 Mcg Inhaler) 10.2 Gm Inhr, 10.2 GM IH BID for 30 Days, #1 INH 1 Refill Prov:ADILSON RICHMOND MD 07/22/22 Reported Medications Cilostazol (Cilostazol) 100 Mg Tablet, 100 MG PO BID, TAB 09/26/22 Delta-3 Fatty Acids/Fish Oil (Delta 3 1,000 mg Softgel) 1 Each Capsule, 1 EACH PO BID, CAP 09/25/22 Loratadine (Loratadine) 10 Mg Tablet, 10 MG PO DAILY, TAB 09/25/22 Past Medical History Past Medical History: Diabetes-Type II, High Cholesterol, Hypertension Additional Past Medical Hx: Tobacco abuse Surgical History: Unknown Family History: Negative Social History: Negative, Lives with family History: Not Applicable RN Note Reviewed/Agreed w/PFSH: Yes Review of System Dictation CONSTITUTIONAL: Negative except for HPI HEAD/FACE: Negative except for HPI EENT: Negative except for HPI RESPIRATORY: Negative except for HPI right lateral and anterior chest pain GASTROINTESTINAL/ABDOMINAL: Negative except for HPI GENITOURINARY: Negative except for HPI MUSCULOSKELETAL: Negative except for HPI INTEGUMENTARY: Negative except for HPI NEUROLOGICAL/PSYCH: Negative except for HPI HEMATOLOGIC/LYMPHATIC: Negative except for HPI All Systems Negative, Except as noted above. 13 point review of systems assessed and all negative except for above. Initial Vital Sign VS Vital Signs Date Time Temp Pulse Resp B/P (MAP) Pulse Ox O2 Delivery O2 Flow Rate FiO2 04/03/24 18:35 98.2 92 16 140/57 95 Room Air 0 04/03/24 20:16 21 Physical Exam Dictation Vital Signs reviewed General Appearance: Alert, oriented x 3, n mild acute distress, well developed, nourished. Head and Face: non-traumatic. Eyes: PERRL, pink conjunctivas, eyelid no trauma, anterior chamber with arcus senilis. Ears: Pinnas intact and no signs of trauma or erythema ear canals clear and no discharge TM no erythema Nose: No discharge, no bleeding. Oropharynx: Mouth normal, tongue pink, pharynx clear,no erythema, tonsils no exudates, no abscesses noted, mucous membrane moist Neck: Supple, non-tender, no thyromegaly, no masses, no JVD, no bruits Breast:Deferred Chest: MILD RIGHT LATERAL CHEST WALL tenderness, no crepitus, no paradoxical movement, no retractions REPRODUCES PAIN Lungs:Clear, well-ventilated, symmetric, no rales, no wheezing, no rhonchi, no stridor, good breath sounds bilaterally diminished in the bases Heart: Regular rate, regular rhythm, no murmur, no gallops Vascular: no peripheral edema, Abdomen: Soft, positive bowel sounds, nondistended, no guarding, nontender, no rebound, no masses no hepatomegaly, no splenomegaly, no Devine's sign, no hernias. Rectal: Deferred Genital: Deferred Neurological: Normal speech, motor function intact, sensory function intact Musculoskeletal: Neck nontender, full range of motion, back nontender, full range of motion, Extremities: nontender, full range of motion Skin: Color pink, dry, no turgor, no rash, no lacerations, no abrasions, no contusions. Lymphatic: Deferred Results (Laboratory/Radiology) Laboratory/Radiology Laboratory Tests Test 04/03/24 18:56 04/03/24 20:13 White Blood Count 6.2 K/uL (4.8-10.8) Red Blood Count 3.32 MIL/uL (4.00-5.50) L Hemoglobin 10.6 g/dL (12.0-16.0) L Hematocrit 32.4 % (36-48) L Mean Corpuscular Volume 97.6 fL (79-99) Mean Corpuscular Hemoglobin 31.9 pg (27.0-33.0) Mean Corpuscular Hemoglobin Concent 32.7 g/dL (32.0-36.0) Red Cell Distribution Width 13.8 % (11.0-15.5) Platelet Count 344 K/uL (130-400) Mean Platelet Volume 9.4 fL (7.5-10.5) Immature Granulocyte % (Auto) 0.8 % (0-1) Neutrophils (%) (Auto) 65.6 % (40.0-77.0) Lymphocytes (%) (Auto) 26.3 % (21.0-51.0) Monocytes (%) (Auto) 5.8 % (3.0-13.0) Eosinophils (%) (Auto) 1.0 % (0.0-8.0) Basophils (%) (Auto) 0.5 % (0.0-5.0) Neutrophils # (Auto) 4.1 K/uL (1.8-7.7) Lymphocytes # (Auto) 1.6 K/uL (1.0-4.8) Monocytes # (Auto) 0.4 K/uL (0.1-1.0) Eosinophils # (Auto) 0.06 K/uL (0.00-0.70) Basophils # (Auto) 0.03 K/uL (0.00-0.20) Absolute Immature Granulocyte (auto 0.05 K/uL (0-1) Nucleated Red Blood Cells 0.0 % (0.0-0.19) Sodium Level 134 mmol/L (136-145) L Potassium Level 4.7 mmol/L (3.5-5.1) Chloride Level 101 mmol/L (101-111) Carbon Dioxide Level 26 mmol/L (21-32) Blood Urea Nitrogen 25 mg/dL (7-18) H Creatinine 1.4 mg/dL (0.5-1.0) H Glomerular Filtration Rate Calc 39 mL/min (>90) Random Glucose 113 mg/dL (70-105) H Total Calcium 8.7 mg/dL (8.5-10.1) Magnesium Level 2.10 mg/dL (1.80-2.40) Troponin I High Sensitivity 8 ng/L (4-50) B-Type Natriuretic Peptide 141 pg/mL (0-100) H 133 pg/mL (0-100) H Lipase 38 U/L (16-77) Labs Reviewed?: Yes EKG Comment: [facility] Test Date: 2024-04-03 Test Time: 18:44:10 Pat Name: HILARY HANSEN Department: [facility] Room: 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 ED Course ED Course Orders Procedure Category Date Status Time Cbc With Differential LAB 04/03/24 Complete 18:34 B-Type Natriuretic LAB 04/03/24 Complete Peptide 18:34 Chest 1vw RAD 04/03/24 Resulted 18:34 12 Lead Ekg Tracing- EKG 04/03/24 Complete Technical 18:34 Magnesium LAB 04/03/24 Complete 18:34 Troponin I High LAB 04/03/24 Complete Sensitivity 18:34 Basic Metabolic Panel LAB 04/03/24 Complete 18:34 Lipase LAB 04/03/24 Complete 18:34 Morphine 2mg Syg PHA 04/03/24 Complete (Morphine 2mg Syg) 19:00 Ondansetron 4mg Inj PHA 04/03/24 Complete (Zofran 4mg Inj) 19:00 B-Type Natriuretic LAB 04/03/24 Complete Peptide 19:54 Current Medications Medications (Trade) Dose Ordered Sig/Bharti Route PRN Reason Start Time Stop Time Status Last Admin Dose Admin Morphine Sulfate (morPHINE 2MG SYG) 2 mg ONCE ONCE IVP 04/03/24 19:00 04/03/24 19:01 DC 04/03/24 20:25 Ondansetron HCl (zoFRAN 4MG INJ) 4 mg ONCE ONCE IVP 04/03/24 19:00 04/03/24 19:01 DC 04/03/24 20:25 Vital Signs Date Time Temp Pulse Resp B/P (MAP) Pulse Ox O2 Delivery O2 Flow Rate FiO2 04/03/24 20:16 98.4 89 18 148/60 96 Room Air* 0 21 04/03/24 18:35 98.2 92 16 140/57 95 Room Air 0 2130 PATIENT IS AWARE THAT ESSENTIALLY UNREMARKABLE EXAM AND WORKUP. SHE WILL BE DISCHARGED HOME WITH A ACUTE COSTOCHONDRITIS TREATED FOR PAIN AND TOLD TO SEE HER PRIMARY CARE DOCTOR. HEART Score Response (Comments) Value Age: > 65yrs (+2) 2 Risk Factors: 1-2 risk factors (+1) 1 Initial Troponin: Normal limit (0) 0 Total 3 Medical Decision Making MDM MDM: DIFFERENTIAL DIAGNOSIS: ACS/AMI/COSTOCHONDRITIS/ELECTROLYTE IMBALANCE/DEHYDRATION/PNEUMONIA/BRONCHITIS RATIONALE: TESTS CONSIDERED AND ORDERED SECONDARY TO SHARED DECISION MAKING INCLUDE: RADIOLOGY/LABS/ PREVIOUS OUTSIDE RECORDS REVIEWED: OLD ER VISITS. RISK OF COMPLICATION AND/OR MORBIDITY OR MORTALITY OF PATIENT MANAGEMENT: NONE MEDICATIONS-PER MEDICATION RECONCILIATION NEED FOR HOSPITALIZATION: PATIENT DOES NOT MEET CRITERIA FOR HOSPITALIZATION. NO NEED FOR EMERGENCY MAJOR/MINOR SURGERY: NO THERE ARE NO SOCIAL CONCERNS WITH THIS PATIENT. PRESCRIPTION DRUG MANAGEMENT IBUPROFEN PRESCRIPTIONS WILL INCLUDE SYMPTOMATIC CARE PATIENT'S PRIOR EXTERNAL MEDICAL RECORDS FROM OTHER ER VISITS WERE REVIEWED BY ME INDICATED. PRIOR TESTING AND RESULTS FROM PREVIOUS VISITS WERE REVIEWED. PRIOR TESTS WERE TAKEN INTO ACCOUNT WITH MEDICAL DECISION MAKING AND RESOURCE UTILIZATION, INDEPENDENT HISTORIAN/HISTORIANS WERE USED TO OBTAIN COMPLETE MEDICAL HISTORY. I INDEPENDENTLY INTERPRETED THE TEST THAT WERE PERFORMED, RESULTS WERE REVIEWED BY ME AND CONSIDERED FINDINGS ON RADIOLOGY IF ORDERED. MEDICAL MANAGEMENT AND EXAMINATION INTERPRETATION DISCUSSIONS WERE HAD BY ME WITH OTHER QUALIFIED HEALTHCARE PROFESSIONALS INDICATED FOR THE PATIENT'S CARE. DX & DISP Disposition: Discharge Departure Impression: Primary Impression: Acute costochondritis Additional Impressions: Anemia of chronic renal failure, stage 3b, Chronic renal failure (CRF), stage 3b Condition: Stable Additional Instructions: FOLLOW-UP WITH PRIMARY CARE PROVIDER IN 1 TO 2 DAYS. TAKE MEDICATIONS DIRECTED HERE IN THE EMERGENCY ROOM. OKAY TO CONTINUE HOME MEDICATIONS UNLESS OTHERWISE DISCUSSED DURING YOUR VISIT IN THE EMERGENCY ROOM TODAY. RETURN TO YOUR NEAREST EMERGENCY ROOM IF SYMPTOMS WORSEN OR IF THERE IS NO IMPROVEMENT. CALL 911 IF YOU NEED IMMEDIATE ASSISTANCE. TAKE TYLENOL [id number] NEEDED AND IF NO CONTRAINDICATIONS ARE PRESENT. INCREASE ORAL HYDRATION. A WOUND CULTURE OR URINE CULTURE WAS ORDERED HERE IN THE EMERGENCY ROOM DEPARTMENT PLEASE FOLLOW-UP WITH PRIMARY CARE PROVIDER AND ADVISE THEM TO GET REPEAT PORTS FROM OUR FACILITY. IF YOU HAD ANY RONAK WRAP/SPLINTS THAT WERE APPLIED HERE, PLEASE DO NOT REMOVE THEM UNTIL YOU SEE YOUR PRIMARY CARE OR SPECIALTY. Referrals: EMBER UGALDE (PCP) Time of Disposition: 21:32 I have reviewed the case, and I agree with, Diagnosis and Plan BRETT DIAZ NP Apr 03, 2024 19:51
[2024-04-03] MEDS: ondanSETRON 4MG INJ IVP ONE (20:25)
[2024-04-03] MEDS: morPHINE 2 MG SYG IVP ONE (20:25)
--- NOTE | 2024-04-03 21:24 | HMCIMG ---
CHEST 1VW HISTORY: Chest pain COMPARISON: 02/01/2024 FINDINGS: A frontal projection of the chest was obtained. Mild bilateral pulmonary infiltrates are seen may be related to mild pulmonary vascular congestion with possible superimposed pneumonitis. The heart is borderline enlarged. Degenerative changes are seen. No evidence of aortic calcification is seen. IMPRESSION: 1. Mild bilateral pulmonary infiltrates are seen may be related to mild pulmonary vascular congestion with possible superimposed pneumonitis.
[2024-04-03] MEDS ORDERED: IBUP-2070 PO (21:32)
--- NOTE | 2024-04-03 22:08 | NUR ---
NOVA HANSEN NOTIFED OF PATIENT DC; PER NOVA ZAPATA 10 MINUTES
[2024-04-03] MEDS: ketOROlac 30MG VIAL (30MG/ML) IVP ONE (22:11)
[2024-04-03] MEDS: dexaMETHasone SOD PHOSPHATE 4 MG/ML 1ML VIAL IM ONE (22:13)
[2024-04-03 22:19] VITALS: BP 148/60; PULSE 89; RESP 18; TEMP 98.4; O2SAT 95
--- NOTE | 2024-04-03 22:26 | NUR ---
[facility] HERE FOR PATIENT
== END 2024-04-03 22:26 | disposition home or self-care (01) ==
LOC: EDH 18:27
DX: I12.9 Hypertensive chronic kidney disease with stage 1 through stage 4 chronic kidney disease, or unspecified chronic kidney disease (principal); E11.22 Type 2 diabetes mellitus with diabetic chronic kidney disease; N18.32 Chronic kidney disease, stage 3b; M94.0 Chondrocostal junction syndrome [Tietze]; D63.1 Anemia in chronic kidney disease; E78.00 Pure hypercholesterolemia, unspecified; Z79.02 Long term (current) use of antithrombotics/antiplatelets; Z79.51 Long term (current) use of inhaled steroids
CPT/HCPCS: 99285; 96374; 96375; 71045; 83735; 84484; 80048; 83690; 85025; 36415; 93005; 96372; 83880 ×2; J1100; J1885; J2270; J2405